=== PATIENT | male | born 1950 | race Caucasian/White ===

== ENCOUNTER → 2016-04-21 | Outpatient (CLI) | payer OTHER ==
--- NOTE | 2016-04-21 09:57 | MR ---
EXAMINATION TYPE: MR lumbar spine wo con DATE OF EXAM: 04/21/2016 9:28 AM COMPARISON: Prior lumbar spine 02 October 2013 HISTORY: Low back pain TECHNIQUE: Multiplanar, multisequence images of the lumbar spine were acquired. L1-L2: Similar findings, no significant central stenosis. L2-L3: Circumferential posterior disc bulge causes anterior mass effect on the thecal sac, mild centr al canal stenosis. No significant foraminal encroachment. Some lateral recess encroachment is present greater on the left. L3-L4: Circumferential disc bulge causes only minimal anterior mass effect on the thecal sac. Facet a rthropathy is again seen. No significant foraminal encroachment. L4-L5: Similar findings, bilateral lateral recess is again noted. Hypertrophy of the ligamentum flavu m and facet arthropathy changes are present, circumferential posterior extension of endplate disc com plex causes mass effect on the anterior thecal sac, circumferential extension encroaches upon the lat eral recesses right greater than left. L5-S1: Normal disc appearance without desiccation. No herniation, protrusion or disc bulging. No ca nal stenosis is present. Foramina are patent bilaterally. Lumbar segments are intact. No paraspinal masses are identified. Conus medullaris has a normal appe arance. There is a spinal curvature as noted on prior exam. Lumbar vertebral bodies show stable heigh t and alignment, bone marrow signal. There is multilevel spondylosis with endplate discogenic marrow signal change. There may be marrow conversion, correlate for possible anemia. Possible hemangioma in T12, L2. Cystic focus associated with the left kidney is incompletely seen. IMPRESSION: Essentially stable exam. Multilevel degenerative disc disease, facet arthropathy, foraminal encroachm ent or spinal curvature, additional findings above.
== END | disposition home or self-care (01) ==
LOC: RADMRIMAIN 08:50
PROVIDERS: ATTEND Physical Medicine & Rehabilitation
DX: M51.36 Other intervertebral disc degeneration, lumbar region (principal); M46.96 Unspecified inflammatory spondylopathy, lumbar region
CPT/HCPCS: 72148

== ENCOUNTER → 2018-06-01 | Outpatient (CLI) | payer OTHER | END | disposition home or self-care (01) | LOC: LABWHC1 08:03 | PROVIDERS: ATTEND Internal Medicine | DX: E78.5 Hyperlipidemia, unspecified (principal) | CPT/HCPCS: 36415; 80061 ==

== ENCOUNTER → 2018-12-01 | Outpatient (CLI) | payer OTHER ==
--- NOTE | 2018-12-01 10:01 | CT ---
EXAMINATION TYPE: CT pelvis w con DATE OF EXAM: 12/01/2018 COMPARISON: None HISTORY: Recent diagnosis of prostate CA CT DLP: 1500.7 mGycm Automated exposure control for dose reduction was used. Contrast-enhanced CT of the pelvis was perfor med. CONTRAST: Performed with IV Contrast, patient injected with 100 mL of Isovue 300. FINDINGS: Streak artifact from left hip prosthesis limits portions of the evaluation given streak artifact. Pro state gland does not appear to be enlarged. Prostate gland calcifications seen. Periprostatic fat gurmeet mekhi appear to be well preserved as visualized. Healed fracture left inferior pubic ramus. No bony roosevelt tructive processes noted. Remote fracture of the right greater trochanter. Severe degenerative change s lumbar spine. IMPRESSION: NO EVIDENCE FOR BONY DESTRUCTIVE PROCESS. REMOTE FRACTURES NOTED. LEFT HIP PROSTHESIS.
--- NOTE | 2018-12-01 15:50 | NM ---
EXAMINATION TYPE: NM bone scan whole body DATE OF EXAM: 12/01/2018 COMPARISON: CT pelvis of the same date HISTORY: Prostate cancer Delayed whole-body scanning was performed following the injection of 26 mCi Tc 99m MDP. Images acqui red 5 hours post injection. FINDINGS: There is focal radiotracer accumulation to just to the left of the distal sternal body. There is also slight uptake of the posterior lateral margin of the 10th right rib. No suspicious uptake in the lum bar spine. Linear uptake along the left femur in its mid diaphysis is noted. Minimal uptake of the me dial sixth rib on the left and right lateral sixth rib. Subtle more questionable uptake is seen of th e posterior margins of ribs 8, 9, and 10. Degenerative uptake is seen of the acromio clavicular joint s, sternoclavicular joints, glenohumeral joints, elbows, knees, ankles, mid feet, and sacroiliac join ts. Photopenia is noted of the left femur likely from arthroplasty. Contour deformity of the distal d iaphysis of the right femur could be sequela of prior fracture. IMPRESSION: 1. Multifocal thoracic uptake within multiple ribs that could relate to rib fractures or skeletal met astasis. CT thorax is recommended for further evaluation. Additionally focal uptake is seen just late ral to the distal sternal body, which can also be evaluated with CT. 2. Linear uptake along the left femoral diaphysis is seen, which should be correlated. Left femoral r adiographs. Bulbous deformity of the distal right femoral diaphysis could relate to prior fracture de formity. Correlation with radiographs could also be considered.
== END | disposition home or self-care (01) ==
LOC: RADCTMAIN 07:40
PROVIDERS: ATTEND Urology
DX: C79.51 Secondary malignant neoplasm of bone (principal); C61 Malignant neoplasm of prostate; M21.851 Other specified acquired deformities of right thigh
CPT/HCPCS: 82565; 84520; 72193; 36415; 78306; A9503; Q9967

== ENCOUNTER → 2018-12-15 | Outpatient (CLI) | payer OTHER ==
--- NOTE | 2018-12-16 07:24 | CT ---
EXAMINATION TYPE: CT chest w con DATE OF EXAM: 12/15/2018 COMPARISON: 06/02/2012 HISTORY: Prostate CA CT DLP: 483.3 mGycm, Automated exposure control for dose reduction was used. CONTRAST: Performed injected with 100 mL of Isovue 300. TECHNIQUE: Axial images were obtained at 5 mm thick sections. Reconstructed images are reviewed on Cell[employer] computer in the coronal plane. FINDINGS: Portion of the thyroid visualized is normal. No suspicious lung nodules or focal infiltrates are present. Some minimal perihilar chronic changes a re evident. No enlarged mediastinal or hilar adenopathy is evident. There are scattered small lymph nodes presen t within the mediastinum. The ascending aorta diameter at the level of the main pulmonary artery is 3 .8 cm. The main pulmonary artery diameter at the bifurcation is 3.1 cm. Dense coronary artery calcif ication is present. Limited CT sections are obtained through the upper abdomen. A partially visualized anterior left mid renal cyst measuring 2.3 cm and 11 Hounsfield units partially within the [id number]. Spondylosis is within the thoracic spine. No suspicious changes for metastatic bone disease is eviden t wall right rib fractures may be present. IMPRESSIONS: 1. Chronic appearing minimal perihilar pneumonitis changes may be chronic. 2. No Suspicious Changes for Metastatic Disease
== END ==
LOC: RADCTMAIN 16:07
PROVIDERS: ATTEND Urology
DX: J18.9 Pneumonia, unspecified organism (principal); C61 Malignant neoplasm of prostate
CPT/HCPCS: 82565; 84520; 71260; 36415; Q9967

== ENCOUNTER → 2019-08-11 | Outpatient (CLI) | payer BC | END | disposition home or self-care (01) | LOC: LABWHC1 12:03 | PROVIDERS: ATTEND Urology | DX: C61 Malignant neoplasm of prostate (principal) | CPT/HCPCS: 36415; 84153; 84403 ==

== ENCOUNTER → 2019-10-26 | Outpatient (CLI) | payer MEDICARE ==
--- NOTE | 2019-10-27 13:00 | ECHOF ---
Referral Reason:I35.0 Nonrheumatic aortic (valve) stenosis MEASUREMENTS -------- HEIGHT: 182.9 cm WEIGHT: 99.8 kg BP: RVIDd: 3.6 cm (< 3.3) IVSd: 1.3 cm (0.6 - 1.1) LVIDd: 5.2 cm (3.9 - 5.3) LVPWd: 1.3 cm (0.6 - 1.1) IVSs: 1.5 cm LVIDs: 3.4 cm LVPWs: 1.6 cm LA Diam: 4.4 cm (2.7 - 3.8) LAESV Index (A-L): 33.58 ml/m Ao Diam: 3.7 cm (2.0 - 3.7) AV Cusp: 1.4 cm (1.5 - 2.6) LA Diam: 4.5 cm (2.7 - 3.8) MV E Luis: 0.61 m/s MV DecT: 332 ms MV A Luis: 1.17 m/s MV E/A Ratio: 0.52 AV maxP.22 mmHg AV meanP.72 mmHg RAP: 5.00 mmHg RVSP: 13.79 mmHg FINDINGS -------- Sinus rhythm. This was a technically adequate study. The left ventricle is moderately dilated. There is moderate concentric left ventricular hypertrophy . Overall left ventricular systolic function is normal with, an EF between 55 - 60 %. The right ventricle is normal in size. The left atrium is moderately dilated. LA is moderately dilated 34-39 ml/m2 The right atrial size is normal. The aortic valve was not well visualized. Mild aortic stenosis with peak/mean pressure gradient of 27.22mmHg / 15.72mmHg , the aortic valve area by continuity equation is {LOGAN}. Peak/mean gradient a cross the Aortic Valve is 27.22mmHg / 15.72mmHg. Mild mitral annular calcification present. Mild mitral regurgitation is present. Mild tricuspid regurgitation present. Right ventricular systolic pressure is normal at < 35 mmHg. The pulmonic valve was not well visualized. The aortic root size is normal. There is no pericardial effusion. CONCLUSIONS -------- 1. The left ventricle is moderately dilated. 2. There is moderate concentric left ventricular hypertrophy. 3. The right ventricle is normal in size. 4. The left atrium is moderately dilated. 5. LA is moderately dilated 34-39 ml/m2 6. The right atrial size is normal. 7. The aortic valve was not well visualized. 8. Peak/mean gradient across the Aortic Valve is 27.22mmHg / 15.72mmHg. 9. Mild mitral annular calcification present. 10. Mild mitral regurgitation is present. 11. Mild tricuspid regurgitation present. 12. Right ventricular systolic pressure is normal at < 35 mmHg. 13. The pulmonic valve was not well visualized. SEMICONDUCTOR PACKAGES LEAK TESTER: Chen Hercules RDCS
== END | disposition home or self-care (01) ==
LOC: RADECHMAIN 15:13
PROVIDERS: ATTEND Internal Medicine
DX: I08.1 Rheumatic disorders of both mitral and tricuspid valves (principal); I48.20 Chronic atrial fibrillation, unspecified; I10 Essential (primary) hypertension
CPT/HCPCS: 93306

== ENCOUNTER → 2020-02-15 | Outpatient (CLI) | payer MEDICARE ==
[2020-02-15 21:09] LABS: Prostate Specific Antigen <0.1 ng/mL (0.0-6.5)
== END | disposition home or self-care (01) ==
LOC: LABWHC1 11:45
PROVIDERS: ATTEND Urology
DX: C61 Malignant neoplasm of prostate (principal)
CPT/HCPCS: 36415; 84153; 84403

== ENCOUNTER 2020-04-10 09:10 | Day surgery (SDC) | payer MEDICARE ==
[2020-04-05 14:01] VITALS: BMI 30.1
[~2020-04-10 09:10] MED LIST: LACTATED RINGERS 1,000 ML IV SCH
[2020-04-10 10:03] VITALS: TEMP 97.3
[2020-04-10] MEDS ORDERED: LIDOCAINE 1% (10MG/ML) FOR IV START INTRADERMA ONE (10:03)
[2020-04-10] MEDS ORDERED: PROPOFOL 10 MG/ML 20 ML VIAL IV ONE (10:36)
--- NOTE | 2020-04-10 11:00 | P.PCN ---
Date of Procedure: 04/10/20 Procedure(s) Performed: BRIEF HISTORY: Patient is a 69-year-old pleasant white male scheduled for an elective colonoscopy as a part of evaluation of intermittent rectal bleeding for the last 1 month duration. His last colonoscopy was in 2008. History of prostate cancer and underwent radiation [id number] PROCEDURE PERFORMED: Colonoscopy with snare polypectomy and argon plasma coagulation. PREOPERATIVE DIAGNOSIS: Rectal bleeding of 1 month duration. IV sedation per Anesthesia. PROCEDURE: After informed consent was obtained, the patient, was brought into the endoscopy unit. IV sedation was administered by Anesthesia under continuous monitoring. Digital rectal examination was normal. Initially the Olympus CF-160 flexible video colonoscope was then inserted in the rectum, gradually advanced into the cecum without any difficulty. Careful examination was performed as the scope was gradually being withdrawn. Ileocecal valve and the appendiceal orifice were visualized and appeared normal. Prep was excellent. Mucosa of the cecum, appeared normal. The ascending colon there was a 5 mm and 7 mm polyp removed by snare polypectomy. In the transverse colon there was a 5 mm polyp and 6 mm polyp removed by snare polypectomy. Rest of the ascending colon, transverse colon, descending colon, sigmoid colon, appeared normal. The distal rectum there were multiple scattered telangiectasia consistent with radiation proctitis and argon plasma coagulation was a was done.. Retroflexion was performed in the rectum and no lesions were seen. The patient tolerated the procedure well. IMPRESSION: 5 mm and 7 mm ascending colon polyp status post polypectomy 5 mm 2 and 8 mm transverse colon polyps status post polypectomy Radiation proctitis with multiple telangiectasias in the distal rectum status post argon plasma coagulation RECOMMENDATIONS: Findings of this examination were discussed with the patient as well as his family. He was advised to follow with the biopsy results. If the biopsy shows an adenoma he can have a repeat colonoscopy in 3 years
[2020-04-10 11:21] VITALS: BP 142/76; PULSE 49; RESP 18
== END 2020-04-10 11:52 | disposition home or self-care (01) ==
LOC: ORWHC2ENDO 09:10
PROVIDERS: ATTEND Internal Medicine Gastroenterology
DX: D12.2 Benign neoplasm of ascending colon (principal); D12.3 Benign neoplasm of transverse colon; K62.7 Radiation proctitis; K62.5 Hemorrhage of anus and rectum; I10 Essential (primary) hypertension; E78.5 Hyperlipidemia, unspecified; I73.9 Peripheral vascular disease, unspecified; F32.9 Major depressive disorder, single episode, unspecified; Z79.01 Long term (current) use of anticoagulants; Z79.899 Other long term (current) drug therapy; Z97.2 Presence of dental prosthetic device (complete) (partial); Z90.49 Acquired absence of other specified parts of digestive tract; Z96.642 Presence of left artificial hip joint; Z85.46 Personal history of malignant neoplasm of prostate; Z92.3 Personal history of irradiation; Y84.2 Radiological procedure and radiotherapy as the cause of abnormal reaction of the patient, or of later complication, without mention of misadventure at the time of the procedure; Y92.538 Other ambulatory health services establishments as the place of occurrence of the external cause
CPT/HCPCS: 45385; 45382; 88305; J2704; 45388

== ENCOUNTER → 2020-08-23 | Outpatient (CLI) | payer MEDICARE ==
[2020-08-23 21:38] LABS: Prostate Specific Antigen <0.1 ng/mL (0.0-6.5)
== END | disposition home or self-care (01) ==
LOC: LABWHC1 10:26
PROVIDERS: ATTEND Urology
DX: C61 Malignant neoplasm of prostate (principal)
CPT/HCPCS: 36415; 84153; 84403

== ENCOUNTER 2020-08-28 08:05 | Day surgery (SDC) | payer MEDICARE ==
[2020-08-23 11:56] VITALS: BMI 27.3
[~2020-08-28 08:05] MED LIST changes: +ALPRAZolam 0.25 MG TAB PO PRN; +ASPIRIN 325 MG TAB PO PRN; -LACTATED RINGERS 1,000 ML IV SCH; +SODIUM CHLORIDE 0.9% 1,000 ML in EMPTY BAG 1 BAG IV ONE
[2020-08-28] MEDS ORDERED: SODIUM CHLORIDE 0.9% 1,000 ML IV ONE (08:21)
[2020-08-28 08:57] LABS: Basophils % (A) 1 %; Eosinophils # (A) 0.3 k/uL (0-0.7); Eosinophils % (A) 7 %; HCT 41.7 % (39.0-53.0); HGB 13.5 gm/dL (13.0-17.5); Lymphocytes # (A) 0.8 k/uL (1.0-4.8); Lymphocytes % (A) 22 %; MCH 31.1 pg (25.0-35.0); MCHC 32.3 g/dL (31.0-37.0); MCV 96.2 fL (80.0-100.0); Mean Platelet Volume 7.2; Monocytes # (A) 0.3 k/uL (0-1.0); Monocytes % (A) 8 %; Neutrophils # (A) 2.3 k/uL (1.3-7.7); Neutrophils % (A) 61 %; Platelet Count 182 k/uL (150-450); RBC 4.33 m/uL (4.30-5.90); RDW 14.4 % (11.5-15.5); WBC 3.8 k/uL (3.8-10.6)
[2020-08-28 09:10] LABS: Calcium 9.6 mg/dL (8.4-10.2); Potassium 4.6 mmol/L (3.5-5.1)
[2020-08-28] MEDS ORDERED: MIDAZOLAM 2 MG/2 ML VIAL IV ONE ×2 (10:21→11:14)
[2020-08-28] MEDS ORDERED: LIDOCAINE 1% INJ 10MG/ML (20 ML MDV) SQ ONE (10:25)
[2020-08-28] MEDS: hydrALAZINE HCL 20 MG/ML 1 ML VIAL IV ONE ×2 (10:41→10:44)
[2020-08-28] MEDS ORDERED: HYDROmorphone 0.5 MG/0.5 ML SYRINGE IVP ONE (11:03)
[2020-08-28] MEDS ORDERED: CLOPIDOGREL 75 MG TAB PO ONE (11:09)
[2020-08-28] MEDS ORDERED: NITROGLYCERIN 1000MCG/10ML SYRINGE INTRAARTER ONE (11:17)
[2020-08-28] MEDS ORDERED: niCARdipine Syringe (1,000 mcg/10 mL) INTRAARTER ONE (11:17)
[2020-08-28] MEDS ORDERED: IOPAMIDOL-250 100ML BTL INTRAARTER ONE (11:20)
--- NOTE | 2020-08-28 11:47 | IR ---
EXAMINATION TYPE: IR precinct police captain femoral popliteal DATE OF EXAM: 08/28/2020 CLINICAL HISTORY: Peripheral vascular disease. TECHNIQUE: Fluoroscopy. COMPARISON: None. FINDINGS: Fluoroscopic guidance was provided during lower extremity angiogram and angioplasty proced ure performed by Dr. Lee. A total of 19 minutes of fluoroscopic time was utilized during the proced ure and 271 spot images was acquired. Please refer to procedure note for further details. IMPRESSION: As Above.
[2020-08-28] MEDS ORDERED: SODIUM CHLORIDE 0.9% 1,000 ML in EMPTY BAG 1 BAG IV SCH (12:00)
[2020-08-28] MEDS: HYDROmorphone 0.5 MG/0.5 ML SYRINGE IVP PRN ×3 (14:45→22:48)
[2020-08-28] MEDS: hydrALAZINE HCL 20 MG/ML 1 ML VIAL IVP PRN ×2 (14:45→17:56)
[2020-08-28] MEDS ORDERED: ESCITALOPRAM 20 MG TAB PO SCH (17:00)
[2020-08-28] MEDS: METOPROLOL TARTRATE 12.5 MG TAB PO SCH (20:11)
[2020-08-28] MEDS: MAGNESIUM OXIDE 400 MG TAB PO SCH (20:11)
[2020-08-28] MEDS: APIXABAN 5 MG TAB PO SCH (20:11)
[2020-08-28] MEDS ORDERED: ATORVASTATIN 80 MG TAB PO SCH (21:00)
[2020-08-28] MEDS ORDERED: CALCIUM CARBONATE 500 MG CHEWABLE PO SCH (21:00)
[2020-08-28] MEDS ORDERED: QUEtiapine 50 MG TAB PO SCH (21:00)
--- NOTE | 2020-08-28 23:26 | AN ---
ANGIOGRAPHY REPORT PERFORMING PHYSICIAN: Luis F Lee MD. PROCEDURE PERFORMED: 1. Successful atherectomy of the right SFA using the HawkOne device with extraction of significant plaque. 2. Successful balloon angioplasty of the right SFA using 5.0 x 50 mm drug-coated balloon with an excellent angiographic results. 3. Intravascular ultrasound (IVUS) of the right SFA. 4. Gradient measurement across the right common iliac artery. 5. Right lower extremity angiogram. 6. Left common femoral artery angiogram. INDICATION: This is a 69-year-old gentleman who was experiencing bilateral lower extremities intermittent claudication, worse on the right side than the left side. He underwent recently an angiogram and that revealed critical disease involving the right SFA with intermediate to severe lesion involving the right common iliac artery and also occluded left SFA. Because his symptoms were worse on the right than the left, he was brought today to undergo an intervention on the right SFA. APPROACH: Left common femoral artery. COMPLICATION: None. LEVEL OF SEDATION: Moderate with sedation length of 53 minutes. PROCEDURE DESCRIPTION: After obtaining an informed consent, the patient was brought to the cardiac stucco laborer. The left common femoral artery was cannulated using micropuncture technique and a micropuncture wire passed easily. Then I placed initially a 6-Malaysian 70 cm sheath. I did predilatation using 6 -Malaysian dilator. The right SFA was selected using 5-Malaysian RIM catheter with 035 Glidewire. After that, I did advance the 70 cm 6-Malaysian sheath over the Glidewire and RIM catheter all the way to the right common femoral artery. Please note that I did exchange my 0.035 stiff Glidewire into an Amplatzer wire because the aortoiliac was extremely tortuous. Anticoagulation was initiated with heparin and the patient ACT was monitored throughout the procedure. I did right lower extremity angiogram which revealed severe [id number] disease with critical right SFA disease and mild disease involving the right popliteal. I wired the SFA on the right side using a [address] wire[address] Intravascular ultrasound was performed and revealed a diameter between 5-6 mm. Subsequently, I did atherectomy using the HawkOne device with extraction of significant plaque. After that, balloon angioplasty was performed using initially 5 mm balloon and subsequently 5 mm drug- coated balloon. The following angiogram showed good angiographic results. I did on the way out a gradient measurement across the right common iliac artery and that came into be significant about 50 mmHg. After that, I did exchange my long sheath into short sheath using 0.035 stiff Glidewire. The procedure was completed without any complication after I did selective left common femoral artery angiogram. POSTPROCEDURE MANAGEMENT: 1. WIRE WORKER of the right iliac and WIRE WORKER of the left SFA. 2. The patient is going to stay overnight. 3. Follow up with the patient. CAROLYN / SAMANTHAN: [id number] /
[2020-08-29 08:02] VITALS: BP 160/83; PULSE 76; RESP 18; TEMP 98.6
[2020-08-29 08:37] LABS: Basophils % (A) 1 %; Eosinophils # (A) 0.2 k/uL (0-0.7); Eosinophils % (A) 5 %; HCT 37.4 % (39.0-53.0); HGB 12.3 gm/dL (13.0-17.5); Lymphocytes # (A) 0.5 k/uL (1.0-4.8); Lymphocytes % (A) 14 %; MCH 32.3 pg (25.0-35.0); MCHC 32.8 g/dL (31.0-37.0); MCV 98.5 fL (80.0-100.0); Mean Platelet Volume 7.5; Monocytes # (A) 0.3 k/uL (0-1.0); Monocytes % (A) 8 %; Neutrophils # (A) 2.8 k/uL (1.3-7.7); Neutrophils % (A) 72 %; Platelet Count 147 k/uL (150-450); RDW 13.8 % (11.5-15.5); WBC 3.8 k/uL (3.8-10.6)
[2020-08-29] MEDS ORDERED: CYANOCOBALAMIN 500 MCG TAB PO SCH (09:00)
[2020-08-29] MEDS ORDERED: ASPIRIN 81 MG PO SCH (09:00)
[2020-08-29] MEDS ORDERED: CLOPIDOGREL 75 MG TAB PO SCH (09:00)
[2020-08-29] MEDS ORDERED: FOLIC ACID 1 MG TAB PO SCH (09:00)
[2020-08-29] MEDS ORDERED: FUROSEMIDE 20 MG TAB PO SCH (09:00)
[2020-08-29] MEDS ORDERED: BICALUTAMIDE 50 MG TAB PO SCH (09:00)
[2020-08-29] MEDS ORDERED: lisinopriL 20 MG TAB PO SCH (09:00)
[2020-08-29] MEDS: APIXABAN 5 MG TAB PO SCH (09:19)
[2020-08-29] MEDS: METOPROLOL TARTRATE 12.5 MG TAB PO SCH (09:19)
[2020-08-29 09:20] LABS: African American GFR (CKD) >90 (>60 ml/min/1.73 sqM); Anion Gap 6 mmol/L; Blood Urea Nitrogen 15 mg/dL (9-20); Calcium 9.1 mg/dL (8.4-10.2); Carbon Dioxide 24 mmol/L (22-30); Chloride 105 mmol/L (98-107); Glucose 104 mg/dL (74-99); Non-African American GFR(CKD) 84 (>60 ml/min/1.73 sqM); Potassium 4.5 mmol/L (3.5-5.1); Sodium 135 mmol/L (137-145)
[2020-08-29] MEDS: MAGNESIUM OXIDE 400 MG TAB PO SCH (09:20)
--- NOTE | 2020-08-29 09:56 | DS ---
DISCHARGE SUMMARY ADMISSION DATE: August 28, 2020. DISCHARGE DATE: August 29, 2020 BRIEF HISTORY: This is a pleasant 69-year-old gentleman who underwent yesterday successful atherectomy and balloon angioplasty of the right SFA from left groin approach. The patient was seen this morning. The left groin is soft and nontender and without any bruises. The patient is going to be discharged home on anti-platelet as well anticoagulation and he will be seen in the office as a followup in a week. MMJANY / SAMANTHAN: [id number] /
--- NOTE | 2020-09-04 14:06 | CDI ---
Outpatient Documentation Clarification Form Date: 09/04/20 CDS/Courtesy Driver Name: Alize Chau Phone: If any questions, call Rabia Sousa Jigger Operator at [phone] Patient Name: Hakeem Valdes Admit Date: 08/28/20 Discharge Date: 08/29/20 ATTENTION: The [facility] Coding staff appreciate your assistance in clarifying documentation. Please respond to the clarification below the line at the bottom and electronically sign. The [facility] coding staff will review the response and follow up if needed. Please Note: Queries are made part of the Legal Health Record. If you have any questions, please contact the Jigger Operator. Dear Dr. Lee, Please provide clarification as to the cause of the occlusive PAD. PAD/PVD is considered unspecified. Greatest specificity is required for medical necessity support. Is underlying cause of the occlusive PAD one of the following? Arteriosclerotic disease of the arteries Arteritis Necrotic Due to embolism/thrombosis Other - please specify below Thank you for your kind consideration MTDD
== END 2020-08-29 11:21 | disposition home or self-care (01) ==
LOC: CATHCVL 08:05 → 3SCARD 17:01 → CATHCVL 08-29 11:21
PROVIDERS: ATTEND Internal Medicine Interventional Cardiology
DX: I70.201 Unspecified atherosclerosis of native arteries of extremities, right leg (principal); I10 Essential (primary) hypertension; E78.5 Hyperlipidemia, unspecified; I38 Endocarditis, valve unspecified; F10.10 Alcohol abuse, uncomplicated; Z87.891 Personal history of nicotine dependence; Z79.82 Long term (current) use of aspirin; Z79.899 Other long term (current) drug therapy
CPT/HCPCS: 37225; 37252; 80048 ×2; 85025 ×2; 87635; C1769 ×7; C1894 ×2; C1714; C1753; C2623; C1725; J2250; J0360; J2001; J1644; J1170; Q9966

== ENCOUNTER 2020-10-02 11:49 | Day surgery (SDC) | payer MEDICARE ==
[2020-10-01 08:36] VITALS: BMI 27.1
[2020-10-02 12:31] LABS: Basophils % (A) 1 %; Eosinophils # (A) 0.3 k/uL (0-0.7); Eosinophils % (A) 6 %; Lymphocytes # (A) 0.8 k/uL (1.0-4.8); Lymphocytes % (A) 15 %; MCH 32.1 pg (25.0-35.0); MCHC 33.2 g/dL (31.0-37.0); MCV 96.5 fL (80.0-100.0); Mean Platelet Volume 7.5; Monocytes # (A) 0.4 k/uL (0-1.0); Monocytes % (A) 8 %; Neutrophils # (A) 3.3 k/uL (1.3-7.7); Neutrophils % (A) 68 %; Platelet Count 177 k/uL (150-450); RBC 4.05 m/uL (4.30-5.90); WBC 4.9 k/uL (3.8-10.6)
[2020-10-02] MEDS ORDERED: ASPIRIN 81 MG ONE (12:32)
[2020-10-02 12:43] LABS: Calcium 9.5 mg/dL (8.4-10.2); Potassium 4.1 mmol/L (3.5-5.1)
[2020-10-02] MEDS ORDERED: SODIUM CHLORIDE 0.9% 500 ML 500 ML with niCARdipine 6.25 MG, NITROGLYCERIN-D5W PMX 0.05... IV ONE ×8 (12:45→17:00)
[2020-10-02] MEDS ORDERED: MIDAZOLAM 2 MG/2 ML VIAL IV ONE (14:44)
[2020-10-02] MEDS ORDERED: HYDROmorphone 0.5 MG/0.5 ML SYRINGE IVP ONE ×5 (14:44→18:27)
[2020-10-02] MEDS: LIDOCAINE 1% INJ 10MG/ML (20 ML MDV) SQ ONE ×2 (14:48→15:45)
[2020-10-02] MEDS: fentaNYL (PF) 50 MCG/ML 2 ML AMP IV ONE ×2 (14:53→16:08)
[2020-10-02] MEDS ORDERED: ENALAPRILAT 1.25 MG/ML 1 ML VIAL IV ONE (15:28)
[2020-10-02] MEDS: hydrALAZINE HCL 20 MG/ML 1 ML VIAL IV ONE ×2 (15:29→15:39)
[2020-10-02] MEDS: MIDAZOLAM 2 MG/2 ML VIAL IV ONE ×2 (15:55→16:38)
[2020-10-02] MEDS: MORPHINE SULFATE 4MG/4ML SYRG IV ONE ×2 (16:57→17:09)
[2020-10-02] MEDS ORDERED: PROPOFOL 10 MG/ML 20 ML VIAL IV ONE (17:30)
[2020-10-02] MEDS ORDERED: IOPAMIDOL-250 100ML BTL INTRAARTER ONE ×2 (17:49→18:21)
[2020-10-02] MEDS ORDERED: SODIUM CHLORIDE 0.9% 1,000 ML IV ONE (18:22)
[2020-10-02] MEDS ORDERED: CLOPIDOGREL 75 MG TAB PO ONE (18:28)
[2020-10-02] MEDS ORDERED: SODIUM CHLORIDE 0.9% 1,000 ML in EMPTY BAG 1 BAG IV SCH (18:30)
--- NOTE | 2020-10-02 20:35 | AN ---
ANGIOGRAPHY REPORT DATE OF SERVICE: October 02, 2020. PERFORMING PHYSICIAN: Luis F Lee MD. PROCEDURE PERFORMED: 1. Successful stenting of the left SFA using 2 stents of Zilver PTX and both of them were 7.0 x 140 mm. 2. Intravascular ultrasound (IVUS) of the left popliteal and left SFA. 3. Successful balloon angioplasty of the left posterior tibial artery and left tibioperoneal trunk. 4. Left lower extremity angiogram. 5. Ultrasound-guided access of the left posterior tibial artery and right common femoral artery. 6. Right common femoral artery angiogram. INDICATION: This is a 69-year-old gentleman who was diagnosed recently with intermittent claudication and underwent an angiogram which revealed severe PAD with occluded bilateral SFA. He underwent angioplasty of the right SFA and was brought today to undergo an intervention on the left SFA. APPROACH: Right common femoral artery and left posterior tibial artery. COMPLICATION: None. LEVEL OF SEDATION: Moderate with sedation length of 205 minutes and this is a long and complex case. PROCEDURE DESCRIPTION: After obtaining an informed consent, the patient was brought to the cardiac geochemical laboratory technician. The right common femoral artery was cannulated using micropuncture technique under ultrasound guidance, the micropuncture wire passed easily. Then I placed a 6-Stateless 70 cm Raabe sheath in the right common femoral artery. Anticoagulation at that point was achieved using heparin and the patient was given 8000 units of heparin at the beginning of the procedure with continuous ACT monitoring throughout the procedure. I did select the left profunda using 0.035 stiff Glidewire with the backup support of 5- Stateless RIM catheter. After that I did advance the rim over the wire to the left profunda. Then I did advance the sheath over the wire and the catheter to the left common femoral artery. Left lower extremity angiogram was achieved. I attempted crossing the TABLET MACHINE OPERATOR in antegrade approach and that was unsuccessful. At that point, I decided to access the left posterior tibial artery. The left posterior tibial artery was accessed using micropuncture technique under ultrasound guidance, the micropuncture wire passed easily. Then I placed a slender 5/6- Stateless sheath at the left posterior tibial artery. At that point, continuous infusion of cocktail includes verapamil and the heparin as well as nitroglycerin was initiated. I was able to cross TABLET MACHINE OPERATOR in a retrograde technique from the left posterior tibial sheath. I was able to advance the wire all the way to the left common femoral artery. Crossing the CTA was extremely challenging. I did snare the wire from above. Then I finished everything from above. Initially I did intravascular ultrasound which I showed that I was in the false lumen all the way. Because of that, I decided to do balloon angioplasty and stent and skip atherectomy. I did balloon angioplasty using 5 mm Chocolate balloon and subsequently deployed 2 stents in the left SFA. Both were 7 x 140 mm Zilver PTX. Both were dilated using 6 mm balloon. Please note that attempting advancing the catheter through the left posterior tibial artery and left tibioperoneal trunk was unsuccessful and I had to do balloon angioplasty to open them up. After that, the procedure was completed without any complication. I did exchange my long sheath into short sheath using 0.035 stiff Glidewire and did selective right common femoral artery angiogram by the end. POSTPROCEDURE MANAGEMENT: 1. Dual anti-platelet therapy. 2. Risk factor modifications. 3. Follow up with the patient. MMODL / IJN: [id number] /
[2020-10-02] MEDS ORDERED: ATORVASTATIN 80 MG TAB PO SCH (21:00)
[2020-10-02] MEDS ORDERED: CALCIUM CARBONATE 500 MG CHEWABLE PO SCH (21:00)
[2020-10-02] MEDS ORDERED: QUEtiapine 50 MG TAB PO SCH (21:00)
[2020-10-02] MEDS ORDERED: ACETAMINOPHEN TAB 325 MG TAB PO PRN (21:59)
[2020-10-02] MEDS: METOPROLOL TARTRATE 12.5 MG TAB PO SCH (22:22)
[2020-10-02] MEDS: MAGNESIUM OXIDE 400 MG TAB PO SCH (22:22)
[2020-10-02 23:02] VITALS: RESP 18
[2020-10-03] MEDS ORDERED: ATROPINE SULFATE 0.1 MG/ML 10ML SYRINGE ONE (00:27)
[2020-10-03 08:02] VITALS: PULSE 64; TEMP 98.2
[2020-10-03] MEDS: MAGNESIUM OXIDE 400 MG TAB PO SCH (08:03)
--- NOTE | 2020-10-03 08:22 | IR ---
Fluoroscopy HISTORY: Peripheral vascular occlusive disease, left leg pain 78.3 minutes fluoroscopy time supplied to the referring clinician. 391 intraoperative C-arm images d ocument the procedure. See dictated report from cardiology.
[2020-10-03 08:28] VITALS: BP 127/61
[2020-10-03] MEDS: METOPROLOL TARTRATE 12.5 MG TAB PO SCH (08:28)
[2020-10-03] MEDS ORDERED: CLOPIDOGREL 75 MG TAB PO SCH (09:00)
[2020-10-03] MEDS ORDERED: lisinopriL 20 MG TAB PO SCH (09:00)
[2020-10-03] MEDS ORDERED: FUROSEMIDE 20 MG TAB PO SCH (09:00)
[2020-10-03] MEDS ORDERED: FOLIC ACID 1 MG TAB PO SCH (09:00)
[2020-10-03] MEDS ORDERED: CYANOCOBALAMIN 500 MCG TAB PO SCH (09:00)
[2020-10-03] MEDS ORDERED: ASPIRIN 81 MG PO SCH (09:00)
[2020-10-03] MEDS ORDERED: BICALUTAMIDE 50 MG TAB PO SCH (09:00)
[2020-10-03 09:26] LABS: African American GFR (CKD) >90 (>60 ml/min/1.73 sqM); Non-African American GFR(CKD) >90 (>60 ml/min/1.73 sqM)
--- NOTE | 2020-10-03 13:21 | DS ---
DISCHARGE SUMMARY DATE OF ADMISSION: October 02, 2020. DATE OF DISCHARGE: October 03, 2020. BRIEF HISTORY: This is a 69-year-old gentleman who underwent, yesterday, successful reopening of totally occluded left SFA from a pedal as well as a groin approach. The procedure was extremely long and very complex, but by the end with an excellent angiographic results and without any complication. By the end I was able to obtain excellent flow in the left leg. The patient was seen today. The right groin is soft and nontender and without any bruises. The left pedal side seems to be good as well. He is going to be discharged on dual anti-platelet therapy, along with high intensity statin and I will follow up with the patient next week in the office. MMJANY / SHERITA: [id number] /
[2020-10-03] MEDS ORDERED: ESCITALOPRAM 10 MG TAB PO SCH (17:00)
--- NOTE | 2020-10-09 09:29 | CDI ---
Outpatient Documentation Clarification Form Date: 09/26/20 CDS/Ancillary Services Manager Name: Alize Chau Phone: If any questions, call Rabia Sousa Prototype Machine Operator at Patient Name: Hakeem Valdes Admit Date: 10/02/20 Discharge Date: 10/03/20 ATTENTION: The [facility] Coding Staff appreciate your assistance in clarifying documentation. Please respond to the clarification below the line at the bottom and electronically sign. The [facility] Coding Staff will review the response and follow-up if needed. Please note: Queries are made part of the legal Health Record. If you have any questions, please contact the Prototype Machine Operator. Dear Dr. Lee, Please provide clarification as to the cause of the occlusive PAD. PAD/PVD is considered unspecified. Greatest specificity is required for medical necessity support. is the underlying cause of the occlusive PAD one of the following? Arteriosclerotic disease of the arteries Arteritis Necrotic Due to embolism/thrombosis Other - please specify below Thank you for your kind consideration, MTDD
--- NOTE | 2020-10-14 12:27 | CDI ---
Outpatient Documentation Clarification Form Date: 10/14/20 CDS/Saddle Stitch Operator Name: Alize Chau Phone: If any questions, call Rabia Sousa Network Development Coordinator at [phone] Patient Name: Hakeem Valdes Admit Date: 08/28/20 Discharge Date: 08/29/20 ATTENTION: The [facility] Coding staff appreciate your assistance in clarifying documentation. Please respond to the clarification below the line at the bottom and electronically sign. The [facility] coding staff will review the response and follow up if needed. Please Note: Queries are made part of the Legal Health Record. If you have any questions, please contact the Network Development Coordinator. Dear Dr. Lee, Please provide clarification as to the cause of the occlusive PAD. PAD/PVD is considered unspecified. Greatest specificity is required for medical necessity support. Is underlying cause of the occlusive PAD one of the following? Arteriosclerotic disease of the arteries Arteritis Necrotic Due to embolism/thrombosis Other - please specify below Thank you for your kind consideration MTDD
--- NOTE | 2020-10-21 06:09 | CDI ---
Outpatient Documentation Clarification Form Date: 10/21/20 CDS/Director Employee Safety And Health Name: Alize Chau Phone: If any questions, call Rabia Sousa Supervisor Dry Cleaning at Patient Name: Hakeem Valdes Admit Date: 10/02/20 Discharge Date: 10/03/20 ATTENTION: The [facility] Coding Staff appreciate your assistance in clarifying documentation. Please respond to the clarification below the line at the bottom and electronically sign. The [facility] Coding Staff will review the response and follow-up if needed. Please note: Queries are made part of the legal Health Record. If you have any questions, please contact the Supervisor Dry Cleaning. Dear Dr. Lee, Please provide clarification as to the cause of the occlusive PAD. PAD/PVD is considered unspecified. Greatest specificity is required for medical necessity support, due to payer medical necessity requirements. Is the underlying cause of the occlusive PAD one of the following? Arteriosclerotic disease of the arteries Arteritis Necrotic Due to embolism/thrombosis Other - please specify below Thank you for your kind consideration, MTDD
--- NOTE | 2020-10-29 06:04 | CDI ---
Outpatient Documentation Clarification Form Date: 10/29/20 CDS/Sharepoint Architect Name: Alize Chau Phone: If any questions, call Rabia Sousa [employer]ator at Patient Name: Hakeem Valdes Admit Date: 10/02/20 Discharge Date: 10/03/20 ATTENTION: The [facility] Coding Staff appreciate your assistance in clarifying documentation. Please respond to the clarification below the line at the bottom and electronically sign. The [facility] Coding Staff will review the response and follow-up if needed. Please note: Queries are made part of the legal Health Record. If you have any questions, please contact the Stock Parts Fabricator. Dear Dr. Lee, Please provide clarification as to the cause of the occlusive PAD. PAD/PVD is considered unspecified. Greatest specificity is required for medical necessity support,and due to payer medical necessity requirements. Is the underlying cause of the occlusive PAD one of the following? Arteriosclerotic disease of the arteries Arteritis Necrotic Due to embolism/thrombosis Other - please specify below Thank you for your kind consideration , MTDD
== END 2020-10-03 11:42 | disposition home or self-care (01) ==
LOC: CATHCVL 11:49 → 3SCARD 18:30 → CATHCVL 10-03 11:42
PROVIDERS: ATTEND Internal Medicine Interventional Cardiology
DX: I70.202 Unspecified atherosclerosis of native arteries of extremities, left leg (principal); I25.10 Atherosclerotic heart disease of native coronary artery without angina pectoris; I11.9 Hypertensive heart disease without heart failure; E78.5 Hyperlipidemia, unspecified; Z87.891 Personal history of nicotine dependence; I08.0 Rheumatic disorders of both mitral and aortic valves; Z79.01 Long term (current) use of anticoagulants; Z79.02 Long term (current) use of antithrombotics/antiplatelets; Z79.82 Long term (current) use of aspirin; Z79.899 Other long term (current) drug therapy
CPT/HCPCS: 94760; 37226; 37228; 37252; 80048; 82565; 85025; C1894 ×3; C1773; C1769 ×7; C1725 ×4; C1887; C1753; C1874; J2250; J0360; J2001; J3010; J1644 ×2; J2704; J1170; Q9966; J2270

== ENCOUNTER 2020-12-26 02:57 | Inpatient (IN) | payer MEDICARE ==
[2020-12-26] MEDS ORDERED: SODIUM CHLORIDE 0.9% 1,000 ML IV STA (03:09)
--- NOTE | 2020-12-26 03:26 | ED ---
Weakness HPI - General Chief complaint: Fall Stated complaint: Fall, back injury Time Seen by Provider: 12/26/20 03:03 Source: patient, EMS Mode of arrival: EMS Limitations: no limitations - Related Data Home Medications Medication Instructions Recorded Confirmed Aspirin 81 mg PO DAILY 11/23/14 10/02/20 Bicalutamide [Casodex] 50 mg PO DAILY 04/05/20 10/02/20 Calcium Carbonate [Calcium] 600 mg PO HS 04/05/20 10/02/20 Cyanocobalamin (Vitamin B-12) 1,000 mcg PO DAILY 04/05/20 10/02/20 [Vitamin B-12] Escitalopram [Lexapro] 30 mg PO 1700 04/05/20 10/02/20 Folic Acid 1 mg PO DAILY 04/05/20 10/02/20 Furosemide [Lasix] 20 mg PO DAILY 04/05/20 10/02/20 Magnesium Oxide [Magox 400] 400 mg PO BID 04/05/20 10/02/20 Metoprolol Tartrate [Lopressor] 12.5 mg PO BID 04/05/20 10/02/20 QUEtiapine [SEROquel] 50 mg PO HS 04/05/20 10/02/20 Ramipril 10 mg PO QAM 04/05/20 10/02/20 amantadine HCL [Amantadine] 100 mg PO BID 04/05/20 10/02/20 Previous Rx's Medication Instructions Recorded Atorvastatin [Lipitor] 80 mg PO HS #30 tab 11/29/14 Apixaban [Eliquis] 2.5 mg PO BID #0 08/29/20 Clopidogrel Bisulfate [Plavix] 75 mg PO DAILY #90 tab 08/29/20 Allergies Allergy/AdvReac Type Severity Reaction Status Date / Time stainless steel Allergy hip Uncoded 10/02/20 12:09 REPLACEMENT HAD TO BE REMOVED Review of Systems ROS Statement: Those systems with pertinent positive or pertinent negative responses have been documented in the HPI. ROS Other: All systems not noted in ROS Statement are negative. Past Medical History Past Medical History: Cancer, Hyperlipidemia, Hypertension, Vascular Disorder Additional Past Medical History / Comment(s): hx of rectal bleeding, prostate ca with radiation 01/2019-02/2019, hx of traumatic brain injury 2016, using a cane to ambulate History of Any Multi-Drug Resistant Organisms: None Reported Past Surgical History: Bowel Resection, Joint Replacement, Orthopedic Surgery Additional Past Surgical History / Comment(s): 08/28/20 rigt SFA arthrectomy, balloon angioplasty, 11/30/15 PTCA LEFT FEM ARTERY. BOWEL RESECTION COLOSTOMY/LATER REVERSED; RT HIP REPLACED X2; RT LEG ORIF W/ MAY/ NOW REMOVED; RT ARM SX WITH PLATE/NOW REMOVED; LEFT WRIST SX.AORTOGRAM, right sfa stent Past Anesthesia/Blood Transfusion Reactions: No Reported Reaction Past Psychological History: Depression Smoking Status: Current every day smoker Past Alcohol Use History: None Reported Past Drug Use History: None Reported - Past Family History Mother Family Medical History: No Reported History Father Family Medical History: Coronary Artery Disease (CAD) Additional Family Medical History / Comment(s): CAROTID ARTERY 95% BLOCKED General Exam Limitations: no limitations Course Vital Signs 12/26/20 12/26/20 12/26/20 03:01 03:23 05:48 Temperature 98.1 F Pulse Rate 70 83 81 Respiratory 18 30 H 20 Rate Blood Pressure 135/76 153/79 162/80 O2 Sat by Pulse 75 L 91 L 97 Oximetry EKG Findings - EKG Comments: EKG Findings:: EKG shows sinus rhythm 83 WV 268 QRS 96 QTc 507 Medical Decision Making - Lab Data Result diagrams: 12/26/20 03:16 12/26/20 03:16 Lab Results 12/26/20 12/26/20 12/26/20 Range/Units 03:16 03:16 03:16 WBC 4.9 (3.8-10.6) k/uL RBC 3.45 L (4.30-5.90) m/uL Hgb 11.1 L (13.0-17.5) gm/dL Hct 33.9 L (39.0-53.0) % MCV 98.4 (80.0-100.0) fL MCH 32.2 (25.0-35.0) pg MCHC 32.7 (31.0-37.0) g/dL RDW 13.4 (11.5-15.5) % Plt Count 228 (150-450) k/uL MPV 8.1 Neutrophils % 87 % Lymphocytes % 4 % Monocytes % 6 % Eosinophils % 1 % Basophils % 0 % Neutrophils # 4.2 (1.3-7.7) k/uL Lymphocytes # 0.2 L (1.0-4.8) k/uL Monocytes # 0.3 (0-1.0) k/uL Eosinophils # 0.1 (0-0.7) k/uL Basophils # 0.0 (0-0.2) k/uL PT 12.3 H (9.0-12.0) sec INR 1.2 H (<1.2) APTT 26.9 (22.0-30.0) sec Sodium (137-145) mmol/L Potassium (3.5-5.1) mmol/L Chloride (98-107) mmol/L Carbon Dioxide (22-30) mmol/L Anion Gap mmol/L BUN (9-20) mg/dL Creatinine (0.66-1.25) mg/dL Est GFR (CKD-EPI)AfAm (>60 ml/min/1.73 sqM) Est GFR (CKD-EPI)NonAf (>60 ml/min/1.73 sqM) Glucose (74-99) mg/dL POC Glucose (mg/dL) (75-99) mg/dL POC Glu Hanging Flags Decorator ID Plasma Lactic Acid Donnell (0.7-2.0) mmol/L Calcium (8.4-10.2) mg/dL Phosphorus (2.5-4.5) mg/dL Magnesium (1.6-2.3) mg/dL Total Bilirubin (0.2-1.3) mg/dL AST (17-59) U/L ALT (4-49) U/L Alkaline Phosphatase (38-126) U/L Creatine Kinase (55-170) U/L Troponin I (0.000-0.034) ng/mL Total Protein (6.3-8.2) g/dL Albumin (3.5-5.0) g/dL Urine Color Yellow Urine Appearance Clear (Clear) Urine pH 6.0 (5.0-8.0) Ur Specific [place] 1.022 (1.001-1.035) Urine Protein 1+ H (Negative) Urine Glucose (UA) Negative (Negative) Urine Ketones Negative (Negative) Urine Blood Moderate H (Negative) Urine Nitrite Negative (Negative) Urine Bilirubin Negative (Negative) Urine Urobilinogen <2.0 (<2.0) mg/dL Ur Leukocyte Esterase Negative (Negative) Urine RBC 17 H (0-5) /hpf Urine WBC 3 (0-5) /hpf Ur Squamous Epith Cells <1 (0-4) /hpf Hyaline Casts 1 (0-2) /lpf Urine Mucus Rare H (None) /hpf 12/26/20 12/26/20 12/26/20 Range/Units 03:16 03:16 03:16 WBC (3.8-10.6) k/uL RBC (4.30-5.90) m/uL Hgb (13.0-17.5) gm/dL Hct (39.0-53.0) % MCV (80.0-100.0) fL MCH (25.0-35.0) pg MCHC (31.0-37.0) g/dL RDW (11.5-15.5) % Plt Count (150-450) k/uL MPV Neutrophils % % Lymphocytes % % Monocytes % % Eosinophils % % Basophils % % Neutrophils # (1.3-7.7) k/uL Lymphocytes # (1.0-4.8) k/uL Monocytes # (0-1.0) k/uL Eosinophils # (0-0.7) k/uL Basophils # (0-0.2) k/uL PT (9.0-12.0) sec INR (<1.2) APTT (22.0-30.0) sec Sodium 137 (137-145) mmol/L Potassium 4.9 (3.5-5.1) mmol/L Chloride 101 (98-107) mmol/L Carbon Dioxide 26 (22-30) mmol/L Anion Gap 10 mmol/L BUN 32 H (9-20) mg/dL Creatinine 1.00 (0.66-1.25) mg/dL Est GFR (CKD-EPI)AfAm 87 (>60 ml/min/1.73 sqM) Est GFR (CKD-EPI)NonAf 75 (>60 ml/min/1.73 sqM) Glucose 138 H (74-99) mg/dL POC Glucose (mg/dL) (75-99) mg/dL POC Glu Hanging Flags Decorator ID Plasma Lactic Acid Donnell 2.1 H* (0.7-2.0) mmol/L Calcium 9.0 (8.4-10.2) mg/dL Phosphorus 2.9 (2.5-4.5) mg/dL Magnesium 2.6 H (1.6-2.3) mg/dL Total Bilirubin 1.2 (0.2-1.3) mg/dL AST 111 H (17-59) U/L ALT 67 H (4-49) U/L Alkaline Phosphatase 99 (38-126) U/L Creatine Kinase 306 H (55-170) U/L Troponin I 0.049 H* (0.000-0.034) ng/mL Total Protein 7.3 (6.3-8.2) g/dL Albumin 3.5 (3.5-5.0) g/dL Urine Color Urine Appearance (Clear) Urine pH (5.0-8.0) Ur Specific [place] (1.001-1.035) Urine Protein (Negative) Urine Glucose (UA) (Negative) Urine Ketones (Negative) Urine Blood (Negative) Urine Nitrite (Negative) Urine Bilirubin (Negative) Urine Urobilinogen (<2.0) mg/dL Ur Leukocyte Esterase (Negative) Urine RBC (0-5) /hpf Urine WBC (0-5) /hpf Ur Squamous Epith Cells (0-4) /hpf Hyaline Casts (0-2) /lpf Urine Mucus (None) /hpf 12/26/20 Range/Units 03:23 WBC (3.8-10.6) k/uL RBC (4.30-5.90) m/uL Hgb (13.0-17.5) gm/dL Hct (39.0-53.0) % MCV (80.0-100.0) fL MCH (25.0-35.0) pg MCHC (31.0-37.0) g/dL RDW (11.5-15.5) % Plt Count (150-450) k/uL MPV Neutrophils % % Lymphocytes % % Monocytes % % Eosinophils % % Basophils % % Neutrophils # (1.3-7.7) k/uL Lymphocytes # (1.0-4.8) k/uL Monocytes # (0-1.0) k/uL Eosinophils # (0-0.7) k/uL Basophils # (0-0.2) k/uL PT (9.0-12.0) sec INR (<1.2) APTT (22.0-30.0) sec Sodium (137-145) mmol/L Potassium (3.5-5.1) mmol/L Chloride (98-107) mmol/L Carbon Dioxide (22-30) mmol/L Anion Gap mmol/L BUN (9-20) mg/dL Creatinine (0.66-1.25) mg/dL Est GFR (CKD-EPI)AfAm (>60 ml/min/1.73 sqM) Est GFR (CKD-EPI)NonAf (>60 ml/min/1.73 sqM) Glucose (74-99) mg/dL POC Glucose (mg/dL) 129 H (75-99) mg/dL POC Glu Hanging Flags Decorator ID [place] Plasma Lactic Acid Donnell (0.7-2.0) mmol/L Calcium (8.4-10.2) mg/dL Phosphorus (2.5-4.5) mg/dL Magnesium (1.6-2.3) mg/dL Total Bilirubin (0.2-1.3) mg/dL AST (17-59) U/L ALT (4-49) U/L Alkaline Phosphatase (38-126) U/L Creatine Kinase (55-170) U/L Troponin I (0.000-0.034) ng/mL Total Protein (6.3-8.2) g/dL Albumin (3.5-5.0) g/dL Urine Color Urine Appearance (Clear) Urine pH (5.0-8.0) Ur Specific [place] (1.001-1.035) Urine Protein (Negative) Urine Glucose (UA) (Negative) Urine Ketones (Negative) Urine Blood (Negative) Urine Nitrite (Negative) Urine Bilirubin (Negative) Urine Urobilinogen (<2.0) mg/dL Ur Leukocyte Esterase (Negative) Urine RBC (0-5) /hpf Urine WBC (0-5) /hpf Ur Squamous Epith Cells (0-4) /hpf Hyaline Casts (0-2) /lpf Urine Mucus (None) /hpf Disposition Clinical Impression: Fall, Weakness, Altered mental state, Pneumonia, UTI (urinary tract infection), Hypoxia Disposition: ADMITTED IP TO THIS HOSP Condition: Fair Is patient prescribed a controlled substance at d/c from ED?: No Referrals: Robert Lazaro MD [Primary Care Provider] - 1-2 days
[2020-12-26 03:27] LABS: Glucose,Whole Blood 129 mg/dL (75-99)
[2020-12-26 03:45] LABS: Basophils % (A) 0 %; Eosinophils # (A) 0.1 k/uL (0-0.7); Eosinophils % (A) 1 %; HCT 33.9 % (39.0-53.0); HGB 11.1 gm/dL (13.0-17.5); Lymphocytes # (A) 0.2 k/uL (1.0-4.8); Lymphocytes % (A) 4 %; MCH 32.2 pg (25.0-35.0); MCHC 32.7 g/dL (31.0-37.0); MCV 98.4 fL (80.0-100.0); Mean Platelet Volume 8.1; Monocytes # (A) 0.3 k/uL (0-1.0); Monocytes % (A) 6 %; Neutrophils # (A) 4.2 k/uL (1.3-7.7); Neutrophils % (A) 87 %; Platelet Count 228 k/uL (150-450); RBC 3.45 m/uL (4.30-5.90); RDW 13.4 % (11.5-15.5); WBC 4.9 k/uL (3.8-10.6)
[2020-12-26 04:13] LABS: INR 1.2 (<1.2); Partial Thromboplastin Time 26.9 sec (22.0-30.0); Prothrombin Time 12.3 sec (9.0-12.0)
--- NOTE | 2020-12-26 04:25 | CT ---
EXAMINATION TYPE: CT brain kay kamara DATE OF EXAM: 12/26/2020 COMPARISON: None HISTORY: fall CT DLP: 1549.9 mGycm Automated exposure control for dose reduction was used. Images of the brain and cervical spine without contrast. There is cerebral cortical atrophy. There is some patchy hypodensity in the periventricular white mat ter. There is no mass effect nor midline shift. There is no sign of intracranial hemorrhage. The calv arium is intact. Skull base is intact. There is normal aeration of the mastoid sinuses. Cervical vertebra have normal alignment. Disc spaces are fairly normal for age. Posterior elements ar e intact. There is no compression fracture. There is anterior spurring in the lower cervical spine. Prevertebral soft tissues are intact. There are extensive upper lobe bilateral pulmonary infiltrates. There is distended gas-filled upper thoracic esophagus. IMPRESSION: No acute abnormality of the cervical spine. Cerebral atrophy and chronic small vessel ischemia. No acute intracranial abnormality. Bilateral upper lobe pneumonia.
--- NOTE | 2020-12-26 04:29 | CT ---
EXAMINATION TYPE: CT lumbar spine wo con DATE OF EXAM: 12/26/2020 COMPARISON: None HISTORY: fall low back pain CT DLP: 1503.6 mGycm Automated exposure control for dose reduction was used. Images obtained from the level of T12-S3 vertebra without contrast. There is transitional S1 vertebra . There is posterior calcified disc herniation at L5-S1. There is no lumbar compression fracture. Josemanuel tebra have normal alignment. There is anterior spurring throughout the lumbar spine. Abdominal aorta is atheromatous. The facet joints are intact. Sacroiliac joints appear intact. There is no lumbar par aspinal mass. IMPRESSION: Spondylotic changes. No acute fracture seen. Disc herniation at L5-S1 with mild relative spinal steno sis. Disc herniation appears increased compared to MRI scan 04/21/2016.
--- NOTE | 2020-12-26 04:32 | XR ---
EXAMINATION TYPE: XR chest 1V DATE OF EXAM: 12/26/2020 COMPARISON: 10/18/2014 HISTORY: Fall. Pain. TECHNIQUE: FINDINGS: There is coarse interstitial and to a lesser extent airspace infiltrates in both lungs. The re is some consolidation right upper lobe with 3 cm density. There is no heart failure. There is no p leural effusion. IMPRESSION: Pulmonary interstitial fibrosis. Pulmonary patchy infiltrates are new compared to old exam. There is 3 cm masslike consolidation right upper lobe that is new compared to old exam. Follow-up is recommend ed to show clearing.
[2020-12-26] MEDS ORDERED: AZITHROMYCIN 500 MG in SODIUM CHLORIDE 0.9% 250 ML IVPB STA (05:41)
[2020-12-26 05:52] LABS: Albumin 3.5 g/dL (3.5-5.0); Magnesium 2.6 mg/dL (1.6-2.3); Phosphorus 2.9 mg/dL (2.5-4.5); Potassium 4.9 mmol/L (3.5-5.1); Total Bilirubin 1.2 mg/dL (0.2-1.3); Total Protein 7.3 g/dL (6.3-8.2)
[2020-12-26] MEDS ORDERED: ONDANSETRON 4 MG/2 ML VIAL IVP PRN (06:21)
[2020-12-26] MEDS ORDERED: NALOXONE 0.4 MG/ML 1 ML VIAL IV PRN (06:21)
[2020-12-26 06:22] LABS: Appearance,Urine Clear (Clear); Bilirubin,Urine Negative (Negative); Blood,Urine Moderate (Negative); Color,Urine Yellow; Glucose,Urine (UA) Negative (Negative); Hyaline Casts,Urine 1 /lpf (0-2); Ketones,Urine Negative (Negative); Leukocyte Esterase,Urine Negative (Negative); Mucus,Urine Rare /hpf; Nitrite,Urine Negative (Negative); Protein,Urine 1+ (Negative); RBC,Urine 17 /hpf (0-5); Specific Gravity,Urine 1.022 (1.001-1.035); Squamous Epithelial Cell,Urine <1 /hpf (0-4); Urobilinogen,Urine <2.0 mg/dL (<2.0); WBC,Urine 3 /hpf (0-5)
[2020-12-26] MEDS: SODIUM CHLORIDE 0.9% 1,000 ML IV SCH ×2 (06:33→16:31)
[2020-12-26] MEDS ORDERED: PANTOPRAZOLE 40 MG/10 ML VIAL IV SCH (09:00)
--- NOTE | 2020-12-26 09:52 | P.HPIM ---
<Agus Cloud - Last Filed: 12/26/20 15:57> History of Present Illness H&P Date: 12/26/20 History of Presenting Illness: Patient is a 70-year-old male with a past medical history of hypertension, hyperlipidemia, peripheral vascular disease, TBI, and prostate cancer 2018. He was brought to the emergency department for reports of lethargy, weakness, and shortness of breath. He was found to have acute respiratory failure with hypoxia requiring oxygen supplementation. In the ED, a chest x-ray revealed pulmonary interstitial fibrosis with a 3 cm masslike consolidation in the right upper lobe, CT head and cervical spine negative for acute process. Chest x-ray revealing bilateral upper lobe pneumonia. CT chest positive for bilateral upper lobe pneumonia. Labs initially revealing lactic acidosis with lactate of 2.1 and repeat of 1.0. CBC revealing mild normocytic normochromic anemia with a hemoglobin of 11.1. Liver profile revealing slightly elevated AST at 111 and ALT of 67. Patient was started on azithromycin and Rocephin and Covid PCR pending. Patient was vaccinated for pneumococcal vaccination in 2019 as well as Covid 19 with [employer] vaccine 06/2020. Patient was admitted under our services with consultation to pulmonology. Patient was seen and fully evaluated at the bedside. Patient appeared to be in moderate distress on 6 L O2 via nasal cannula with SpO2 of 90%. Patient positive accessory muscle use. Patient reports feeling very tired and weak. He confirmed receiving Covid 19 vaccination in June of this year. He reports shortness of breath, coarse nonproductive cough and weakness began approximately 5 days ago and rapidly worsened. He denies having fever, chills, diaphoresis, headache, lightheadedness, dizziness, chest pain, palpitations, abdominal pain, nausea, vomiting, changes in urinary or bowel function, or experiencing any swelling/numbness/weakness in his extremities. Covid 19 PCR resulted POSITIVE. Review of systems: Pertinent positives and negatives as discussed in HPI, a complete review of systems was performed and all other systems are negative. Physical exam: Vital signs reviewed and stable with the exception of increased oxygenation needs, patient on 6 L with SpO2 of 90%. General: Patient appears stated age, acutely ill-appearing and in mild distress. Derm: Skin warm and dry, normal coloration for ethnicity. Head: Atraumatic, normocephalic and symmetric. Eyes: EOMs intact, no lid lag, and anicteric sclera Mouth: no lip lesions, mucus membranes dry Cardiovascular: regular rate and rhythm with normal S1S2, no murmur, positive posterior tibial pulses bilaterally, and cap refill < 2 seconds. Lungs: Increased respiratory effort with use of accessory muscles, lungs moderately diminished with crackles at bilateral bases. Abdominal: soft, nontender to palpation, no guarding, no appreciable organomegaly Ext: ROM intact. No gross muscle atrophy, no edema, no contractures. Bilateral lower extremity venous discoloration. Neuro: Speech clear, face symmetrical and CN II-XII grossly intact with no noted focal neuro deficits Psych: Alert and oriented to person, place, time, and situation. Appropriate and pleasant affect. Assessment and Plan of Care: Acute respiratory failure with hypoxia secondary to Covid 19 pneumonia -Chest x-ray revealing bilateral upper lobe pneumonia. CT chest positive for bilateral upper lobe pneumonia. -Covid 19 PCR resulted POSITIVE. -Continued Oxygenation to be administered and titrated as needed to maintain SPO2 equal to or greater than 90% -Telemetry monitoring. -Pulse-oximetry -Decadron, day 1 of steroids -Zinc, vitamin C, and vitamin D -Pulmonary following, appreciate further recommendations. Hypertension Monitor vital signs and continue daily medication regimen. Hyperlipidemia Continue daily medication regimen. Paroxysmal atrial fibrillation Continue anticoagulation with Eliquis Chronic medical conditions include: Peripheral vascular disease TBI History of prostate cancer The patient is admitted with an anticipated greater than 2 midnight stay for evaluation of acute respiratory failure with hypoxia secondary to Covid 19 pneumonia Surrogate decision-maker: CODE STATUS: Full code DVT prophylaxis: Eliquis Discussed with: Patient and RN Anticipated discharge date: Clinical course to determine Anticipated discharge place: Home A total of 45 minutes was spent on the care of this complex patient more than 50 % of the time was spent in counseling and care coordination. Past Medical History Past Medical History: Cancer, Hyperlipidemia, Hypertension, Vascular Disorder Additional Past Medical History / Comment(s): hx of rectal bleeding, prostate ca with radiation 01/2019-02/2019, hx of traumatic brain injury 2017, using a cane to ambulate History of Any Multi-Drug Resistant Organisms: None Reported Past Surgical History: Bowel Resection, Joint Replacement, Orthopedic Surgery Additional Past Surgical History / Comment(s): 08/28/20 rigt SFA arthrectomy, balloon angioplasty, 9/3/16 PTCA LEFT FEM ARTERY. BOWEL RESECTION COLOSTOMY/LATER REVERSED; RT HIP REPLACED X2; RT LEG ORIF W/ MAY/ NOW REMOVED; RT ARM SX WITH PLATE/NOW REMOVED; LEFT WRIST SX.AORTOGRAM, right sfa stent Past Anesthesia/Blood Transfusion Reactions: No Reported Reaction Past Psychological History: Depression Smoking Status: Current every day smoker Past Alcohol Use History: None Reported Past Drug Use History: None Reported - Past Family History Mother Family Medical History: No Reported History Father Family Medical History: Coronary Artery Disease (CAD) Additional Family Medical History / Comment(s): CAROTID ARTERY 95% BLOCKED Medications and Allergies Home Medications Medication Instructions Recorded Confirmed Type Aspirin 81 mg PO DAILY@0811/23/14 12/26/20 History Bicalutamide [Casodex] 50 mg PO DAILY@0804/05/20 12/26/20 History Escitalopram [Lexapro] 30 mg PO DAILY@1700 04/05/20 12/26/20 History Folic Acid 1 mg PO DAILY@79904/05/20 12/26/20 History Furosemide [Lasix] 20 mg PO DAILY@0804/05/20 12/26/20 History Magnesium Oxide [Magox 400] 400 mg PO BID@08,199904/05/20 12/26/20 History Metoprolol Tartrate [Lopressor] 12.5 mg PO BID@08,199904/05/20 12/26/20 History QUEtiapine [SEROquel] 50 mg PO HS@199904/05/20 12/26/20 History Ramipril 10 mg PO DAILY@0804/05/20 12/26/20 History amantadine HCL [Amantadine] 100 mg PO BID@08,199904/05/20 12/26/20 History Apixaban [Eliquis] 2.5 mg PO BID@08,199912/26/20 12/26/20 History Atorvastatin [Lipitor] 80 mg PO HS@199912/26/20 12/26/20 History Calcium Carbonate/Vitamin D3 1 tab PO HS@199912/26/20 12/26/20 History [Calcium 600 mg-D3 20 mcg (800 unit)] Clopidogrel Bisulfate [Plavix] 75 mg PO DAILY@79912/26/20 12/26/20 History Cyanocobalamin (Vitamin B-12) 5,000 mcg PO DAILY@0800 12/26/20 12/26/20 History [Vitamin B12] Allergies Allergy/AdvReac Type Severity Reaction Status Date / Time stainless steel Allergy hip Uncoded 12/26/20 07:00 REPLACEMENT HAD TO BE REMOVED Physical Exam Vitals: Vital Signs Temp Pulse Resp BP Pulse Ox 12/26/20 08:27 83 16 142/86 92 L 12/26/20 05:48 81 20 162/80 97 12/26/20 03:23 83 30 H 153/79 91 L 12/26/20 03:01 98.1 F 70 18 135/76 75 L Intake and Output 12/25/20 12/26/20 12/26/20 22:59 06:59 14:59 Other: Weight 83.915 kg Results CBC & Chem 7: 12/26/20 03:16 12/26/20 03:16 Labs: Abnormal Lab Results - Last 24 Hours (Table) 12/26/20 12/26/20 12/26/20 Range/Units 03:16 03:16 03:16 RBC 3.45 L (4.30-5.90) m/uL Hgb 11.1 L (13.0-17.5) gm/dL Hct 33.9 L (39.0-53.0) % Lymphocytes # 0.2 L (1.0-4.8) k/uL PT 12.3 H (9.0-12.0) sec INR 1.2 H (<1.2) BUN (9-20) mg/dL Glucose (74-99) mg/dL POC Glucose (mg/dL) (75-99) mg/dL Plasma Lactic Acid Donnell (0.7-2.0) mmol/L Magnesium (1.6-2.3) mg/dL AST (17-59) U/L ALT (4-49) U/L Creatine Kinase (55-170) U/L Troponin I (0.000-0.034) ng/mL Urine Protein 1+ H (Negative) Urine Blood Moderate H (Negative) Urine RBC 17 H (0-5) /hpf Urine Mucus Rare H (None) /hpf Coronavirus (PCR) (Not Detectd) 12/26/20 12/26/20 12/26/20 Range/Units 03:16 03:16 03:16 RBC (4.30-5.90) m/uL Hgb (13.0-17.5) gm/dL Hct (39.0-53.0) % Lymphocytes # (1.0-4.8) k/uL PT (9.0-12.0) sec INR (<1.2) BUN 32 H (9-20) mg/dL Glucose 138 H (74-99) mg/dL POC Glucose (mg/dL) (75-99) mg/dL Plasma Lactic Acid Donnell 2.1 H* (0.7-2.0) mmol/L Magnesium 2.6 H (1.6-2.3) mg/dL AST 111 H (17-59) U/L ALT 67 H (4-49) U/L Creatine Kinase 306 H (55-170) U/L Troponin I 0.049 H* (0.000-0.034) ng/mL Urine Protein (Negative) Urine Blood (Negative) Urine RBC (0-5) /hpf Urine Mucus (None) /hpf Coronavirus (PCR) (Not Detectd) 12/26/20 12/26/20 Range/Units 03:23 06:41 RBC (4.30-5.90) m/uL Hgb (13.0-17.5) gm/dL Hct (39.0-53.0) % Lymphocytes # (1.0-4.8) k/uL PT (9.0-12.0) sec INR (<1.2) BUN (9-20) mg/dL Glucose (74-99) mg/dL POC Glucose (mg/dL) 129 H (75-99) mg/dL Plasma Lactic Acid Donnell (0.7-2.0) mmol/L Magnesium (1.6-2.3) mg/dL AST (17-59) U/L ALT (4-49) U/L Creatine Kinase (55-170) U/L Troponin I (0.000-0.034) ng/mL Urine Protein (Negative) Urine Blood (Negative) Urine RBC (0-5) /hpf Urine Mucus (None) /hpf Coronavirus (PCR) Detected A (Not Detectd) <Jarrod Martell - Last Filed: 12/26/20 18:45> Physical Exam Osteopathic Statement: *. No significant issues noted on an osteopathic structural exam other than those noted in the History and Physical/Consult. Vitals: Vital Signs Temp Pulse Pulse Resp BP BP Pulse Ox 12/26/20 17:45 98.5 F 99 158/86 94 L 12/26/20 17:33 98.1 F 91 20 186/99 94 L 12/26/20 16:00 91 20 186/99 94 L 12/26/20 11:56 94 24 172/90 95 12/26/20 08:27 83 16 142/86 92 L 12/26/20 05:48 81 20 162/80 97 12/26/20 03:23 83 30 H 153/79 91 L 12/26/20 03:01 98.1 F 70 18 135/76 75 L Intake and Output 12/26/20 12/26/20 12/26/20 06:59 14:59 22:59 Other: Weight 83.915 kg 83.915 kg Results CBC & Chem 7: 12/26/20 03:16 12/26/20 03:16 Labs: Abnormal Lab Results - Last 24 Hours (Table) 12/26/20 12/26/20 12/26/20 Range/Units 03:16 03:16 03:16 RBC 3.45 L (4.30-5.90) m/uL Hgb 11.1 L (13.0-17.5) gm/dL Hct 33.9 L (39.0-53.0) % Lymphocytes # 0.2 L (1.0-4.8) k/uL PT 12.3 H (9.0-12.0) sec INR 1.2 H (<1.2) D-Dimer (<0.60) mg/L FEU BUN (9-20) mg/dL Glucose (74-99) mg/dL POC Glucose (mg/dL) (75-99) mg/dL Plasma Lactic Acid Donnell (0.7-2.0) mmol/L Magnesium (1.6-2.3) mg/dL AST (17-59) U/L ALT (4-49) U/L Lactate Dehydrogenase (313-618) U/L Creatine Kinase (55-170) U/L Troponin I (0.000-0.034) ng/mL C-Reactive Protein (<1.0) mg/dL Urine Protein 1+ H (Negative) Urine Blood Moderate H (Negative) Urine RBC 17 H (0-5) /hpf Urine Mucus Rare H (None) /hpf Coronavirus (PCR) (Not Detectd) 12/26/20 12/26/20 12/26/20 Range/Units 03:16 03:16 03:16 RBC (4.30-5.90) m/uL Hgb (13.0-17.5) gm/dL Hct (39.0-53.0) % Lymphocytes # (1.0-4.8) k/uL PT (9.0-12.0) sec INR (<1.2) D-Dimer (<0.60) mg/L FEU BUN 32 H (9-20) mg/dL Glucose 138 H (74-99) mg/dL POC Glucose (mg/dL) (75-99) mg/dL Plasma Lactic Acid Donnell 2.1 H* (0.7-2.0) mmol/L Magnesium 2.6 H (1.6-2.3) mg/dL AST 111 H (17-59) U/L ALT 67 H (4-49) U/L Lactate Dehydrogenase (313-618) U/L Creatine Kinase 306 H (55-170) U/L Troponin I 0.049 H* (0.000-0.034) ng/mL C-Reactive Protein (<1.0) mg/dL Urine Protein (Negative) Urine Blood (Negative) Urine RBC (0-5) /hpf Urine Mucus (None) /hpf Coronavirus (PCR) (Not Detectd) 12/26/20 12/26/20 12/26/20 Range/Units 03:23 06:41 11:49 RBC (4.30-5.90) m/uL Hgb (13.0-17.5) gm/dL Hct (39.0-53.0) % Lymphocytes # (1.0-4.8) k/uL PT (9.0-12.0) sec INR (<1.2) D-Dimer 1.54 H (<0.60) mg/L FEU BUN (9-20) mg/dL Glucose (74-99) mg/dL POC Glucose (mg/dL) 129 H (75-99) mg/dL Plasma Lactic Acid Donnell (0.7-2.0) mmol/L Magnesium (1.6-2.3) mg/dL AST (17-59) U/L ALT (4-49) U/L Lactate Dehydrogenase (313-618) U/L Creatine Kinase (55-170) U/L Troponin I (0.000-0.034) ng/mL C-Reactive Protein (<1.0) mg/dL Urine Protein (Negative) Urine Blood (Negative) Urine RBC (0-5) /hpf Urine Mucus (None) /hpf Coronavirus (PCR) Detected A (Not Detectd) 12/26/20 Range/Units 11:49 RBC (4.30-5.90) m/uL Hgb (13.0-17.5) gm/dL Hct (39.0-53.0) % Lymphocytes # (1.0-4.8) k/uL PT (9.0-12.0) sec INR (<1.2) D-Dimer (<0.60) mg/L FEU BUN (9-20) mg/dL Glucose (74-99) mg/dL POC Glucose (mg/dL) (75-99) mg/dL Plasma Lactic Acid Donnell (0.7-2.0) mmol/L Magnesium (1.6-2.3) mg/dL AST (17-59) U/L ALT (4-49) U/L Lactate Dehydrogenase 1153 H (313-618) U/L Creatine Kinase (55-170) U/L Troponin I (0.000-0.034) ng/mL C-Reactive Protein 24.8 H (<1.0) mg/dL Urine Protein (Negative) Urine Blood (Negative) Urine RBC (0-5) /hpf Urine Mucus (None) /hpf Coronavirus (PCR) (Not Detectd) Assessment and Plan Assessment: Patient seen and evaluated by me independently. Patient was also seen by RADHA, the original author of this note. I am in agreement with the subjective, physical exam, and assessment and plan as documented with the addition/changes of my exam and assessment below. Gen: awake, alert HEENT: normocephalic, atraumatic, good hearing acuity, moist mucous membranes Resp: Impaired air exchange, dyspnea, crackles CVS: good distal perfusion x 4, tachycardic, regular rhythm GI: soft, NTTP, ND : no SPT, no CVAT, haney catheter not present MSK: no pitting edema, no clubbing Neuro: non-focal, moving all extremities Psych: cooperative, euthymic mood Plan: Pulmonary consult Antibiotics Decadron Vitamin C/C, zinc Outside window for remdesivir Consideration of IL-6 inhibitor if acute worsening Oxygen when necessary
--- NOTE | 2020-12-26 11:08 | P.CNPUL ---
History of Present Illness Consult date: 12/26/20 Reason for consult: dyspnea History of present illness: A 70-year-old male patient, a poor historian, who was originally brought into the hospital upon the request of his as the patient was found to be quite lethargic, weak, had a fall at home and he was also found to be having increased shortness of breath. He has been vaccinated for COVID-19 and he has completed his vaccination approximately 5 months ago. The chest x-ray showed diffuse but the pulmonary infiltrates and the patient checked positive for COVID-19 by PCR. As such, the patient is currently on oxygen at 6 L per minute and the pulse ox is currently 89-90%. His blood work shows a white cell count of 4.9 with a hemoglobin of 11. He has lymphopenia with a lymphocyte count of 0.2. Coagulation profile is within normal limits. Lactic acid level is at 2.1. BUN is at 32 with a creatinine of 1 and sodium of 137. He does have mild transaminitis consistent with COVID-19 infection with a AST of 111 and ALT of 67. Troponin was at 0.04. Total protein was 7.3 and a albumin of 3.5. UA showed 3 WBCs [place] +1 protein. No nausea. No vomiting. He had diminished appetite. His been feeling weak all over. He was apparently getting confused at home according to the . Review of Systems Constitutional: Reports fatigue, Reports lethargy, Reports poor appetite, Reports weakness Eyes: denies as per HPI, denies blurred vision, denies bulging eye, denies decreased vision, denies diplopia, denies discharge, denies dry eye, denies irritation, denies itching, denies pain, denies photophobia, denies loss of peripheral vision, denies loss of vision, denies tunnel vision/blind spots Ears: deny: decreased hearing, ear discharge, earache, tinnitus Breasts: absent: as per HPI, gynecomastia Cardiovascular: Reports decreased exercise tolerance, Reports dyspnea on exertion, Reports shortness of breath (vitals) Respiratory: Reports cough, Reports dyspnea Gastrointestinal: Reports loss of appetite Genitourinary: Reports as per HPI Musculoskeletal: Reports as per HPI, Reports frequent falls, Reports muscle weakness Musculoskeletal: absent: ankle pain, ankle stiffness, ankle swelling, as per HPI, elbow pain, elbow stiffness, elbow swelling, foot pain, foot stiffness, foot swelling, hand pain, hand stiffness, hand swelling, hip pain, hip stiffness, hip swelling, knee pain, knee stiffness, knee swelling, shoulder pain, shoulder stiffness, shoulder swelling, wrist pain, wrist stiffness, wrist swelling Integumentary: Reports as per HPI Neurological: Reports as per HPI, Reports weakness Psychiatric: Reports as per HPI Endocrine: Reports as per HPI Past Medical History Past Medical History: Cancer, Hyperlipidemia, Hypertension, Vascular Disorder Additional Past Medical History / Comment(s): hx of rectal bleeding, prostate ca with radiation 01/2019-02/2019, hx of traumatic brain injury 2016, using a cane to ambulate History of Any Multi-Drug Resistant Organisms: None Reported Past Surgical History: Bowel Resection, Joint Replacement, Orthopedic Surgery Additional Past Surgical History / Comment(s): 08/28/20 rigt SFA arthrectomy, balloon angioplasty, 11/30/15 PTCA LEFT FEM ARTERY. BOWEL RESECTION COLOSTOMY/LATER REVERSED; RT HIP REPLACED X2; RT LEG ORIF W/ MAY/ NOW REMOVED; RT ARM SX WITH PLATE/NOW REMOVED; LEFT WRIST SX.AORTOGRAM, right sfa stent Past Anesthesia/Blood Transfusion Reactions: No Reported Reaction Past Psychological History: Depression Smoking Status: Current every day smoker Past Alcohol Use History: None Reported Past Drug Use History: None Reported - Past Family History Mother Family Medical History: No Reported History Father Family Medical History: Coronary Artery Disease (CAD) Additional Family Medical History / Comment(s): CAROTID ARTERY 95% BLOCKED Medications and Allergies Home Medications Medication Instructions Recorded Confirmed Type Aspirin 81 mg PO DAILY@79911/23/14 12/26/20 History Bicalutamide [Casodex] 50 mg PO DAILY@79904/05/20 12/26/20 History Escitalopram [Lexapro] 30 mg PO DAILY@169904/05/20 12/26/20 History Folic Acid 1 mg PO DAILY@79904/05/20 12/26/20 History Furosemide [Lasix] 20 mg PO DAILY@79904/05/20 12/26/20 History Magnesium Oxide [Magox 400] 400 mg PO BID@08,199904/05/20 12/26/20 History Metoprolol Tartrate [Lopressor] 12.5 mg PO BID@799,199904/05/20 12/26/20 History QUEtiapine [SEROquel] 50 mg PO HS@199904/05/20 12/26/20 History Ramipril 10 mg PO DAILY@79904/05/20 12/26/20 History amantadine HCL [Amantadine] 100 mg PO BID@799,199904/05/20 12/26/20 History Apixaban [Eliquis] 2.5 mg PO BID@799,199912/26/20 12/26/20 History Atorvastatin [Lipitor] 80 mg PO HS@199912/26/20 12/26/20 History Calcium Carbonate/Vitamin D3 1 tab PO HS@199912/26/20 12/26/20 History [Calcium 600 mg-D3 20 mcg (800 unit)] Clopidogrel Bisulfate [Plavix] 75 mg PO DAILY@79912/26/20 12/26/20 History Cyanocobalamin (Vitamin B-12) 5,000 mcg PO DAILY@79912/26/20 12/26/20 History [Vitamin B12] Allergies Allergy/AdvReac Type Severity Reaction Status Date / Time stainless steel Allergy hip Uncoded 12/26/20 07:00 REPLACEMENT HAD TO BE REMOVED Physical Exam Vitals: Vital Signs Temp Pulse Resp BP Pulse Ox 12/26/20 08:27 83 16 142/86 92 L 12/26/20 05:48 81 20 162/80 97 12/26/20 03:23 83 30 H 153/79 91 L 12/26/20 03:01 98.1 F 70 18 135/76 75 L Intake and Output 12/25/20 12/26/20 12/26/20 22:59 06:59 14:59 Other: Weight 83.915 kg Gen. appearance the patient is lethargic yet, comfortable, no agitation, breathing is nonlabored Head exam was generally normal. There was no scleral icterus or corneal arcus. Mucous membranes were moist. Neck was supple and without jugular venous distension, thyromegaly, or carotid bruits. Carotids were easily palpable bilaterally. There was no adenopathy. Lungs sounds are diminished and the patient has crackles throughout the lung fi elds bilaterally in the mid and lower lung lacy Heart sounds are regular in the patient's systolic ejection murmur grade 4/6 heard throughout the precordium Abdominal exam revealed normal bowel sounds. The abdomen was soft, non-tender, and without masses, organomegaly, or appreciable enlargement of the abdominal aorta. Scar of a previous abdominal surgery over the anterior abdominal wall Examination of the extremities revealed easily palpable radial, femoral and pedal pulses. There was no cyanosis, clubbing or edema. Scar of previous surgery over the right knee Examination of the skin revealed no evidence of significant rashes, suspicious appearing nevi or other concerning lesions. Neurologic the patient is lethargic. He is awake and arousable. He is following simple commands. Moving all 4 extremities. No facial asymmetry. He is aware of himself and place. No agitation. Pupils are equal and reactive to light. No focal neurological deficits. Results - Laboratory Findings CBC and BMP: 12/26/20 03:16 12/26/20 03:16 ABG WBC 4.9 k/uL (3.8-10.6) 12/26/20 03:16 RBC 3.45 m/uL (4.30-5.90) L 12/26/20 03:16 Hgb 11.1 gm/dL (13.0-17.5) L 12/26/20 03:16 Hct 33.9 % (39.0-53.0) L 12/26/20 03:16 MCV 98.4 fL (80.0-100.0) 12/26/20 03:16 MCH 32.2 pg (25.0-35.0) 12/26/20 03:16 MCHC 32.7 g/dL (31.0-37.0) 12/26/20 03:16 RDW 13.4 % (11.5-15.5) 12/26/20 03:16 Plt Count 228 k/uL (150-450) 12/26/20 03:16 MPV 8.1 12/26/20 03:16 Neutrophils % 87 % 12/26/20 03:16 Lymphocytes % 4 % 12/26/20 03:16 Monocytes % 6 % 12/26/20 03:16 Eosinophils % 1 % 12/26/20 03:16 Basophils % 0 % 12/26/20 03:16 Neutrophils # 4.2 k/uL (1.3-7.7) 12/26/20 03:16 Lymphocytes # 0.2 k/uL (1.0-4.8) L 12/26/20 03:16 Monocytes # 0.3 k/uL (0-1.0) 12/26/20 03:16 Eosinophils # 0.1 k/uL (0-0.7) 12/26/20 03:16 Basophils # 0.0 k/uL (0-0.2) 12/26/20 03:16 PT 12.3 sec (9.0-12.0) H 12/26/20 03:16 INR 1.2 (<1.2) H 12/26/20 03:16 APTT 26.9 sec (22.0-30.0) 12/26/20 03:16 Sodium 137 mmol/L (137-145) 12/26/20 03:16 Potassium 4.9 mmol/L (3.5-5.1) 12/26/20 03:16 Chloride 101 mmol/L (98-107) 12/26/20 03:16 Carbon Dioxide 26 mmol/L (22-30) 12/26/20 03:16 Anion Gap 10 mmol/L 12/26/20 03:16 BUN 32 mg/dL (9-20) H 12/26/20 03:16 Creatinine 1.00 mg/dL (0.66-1.25) 12/26/20 03:16 Est GFR (CKD-EPI)AfAm 87 (>60 ml/min/1.73 sqM) 12/26/20 03:16 Est GFR (CKD-EPI)NonAf 75 (>60 ml/min/1.73 sqM) 12/26/20 03:16 Glucose 138 mg/dL (74-99) H 12/26/20 03:16 POC Glucose (mg/dL) 129 mg/dL (75-99) H 12/26/20 03:23 POC Glu [employer] [place] 12/26/20 03:23 Lactic Ac Sepsis Rflx Y 12/26/20 06:00 Plasma Lactic Acid Donnell 1.0 mmol/L (0.7-2.0) 12/26/20 08:47 Calcium 9.0 mg/dL (8.4-10.2) 12/26/20 03:16 Phosphorus 2.9 mg/dL (2.5-4.5) 12/26/20 03:16 Magnesium 2.6 mg/dL (1.6-2.3) H 12/26/20 03:16 Total Bilirubin 1.2 mg/dL (0.2-1.3) 12/26/20 03:16 AST 111 U/L (17-59) H 12/26/20 03:16 ALT 67 U/L (4-49) H 12/26/20 03:16 Alkaline Phosphatase 99 U/L (38-126) 12/26/20 03:16 Creatine Kinase 306 U/L (55-170) H 12/26/20 03:16 Troponin I 0.049 ng/mL (0.000-0.034) H* 12/26/20 03:16 Total Protein 7.3 g/dL (6.3-8.2) 12/26/20 03:16 Albumin 3.5 g/dL (3.5-5.0) 12/26/20 03:16 Urine Color Yellow 12/26/20 03:16 Urine Appearance Clear (Clear) 12/26/20 03:16 Urine pH 6.0 (5.0-8.0) 12/26/20 03:16 Ur Specific [place] 1.022 (1.001-1.035) 12/26/20 03:16 Urine Protein 1+ (Negative) H 12/26/20 03:16 Urine Glucose (UA) Negative (Negative) 12/26/20 03:16 Urine Ketones Negative (Negative) 12/26/20 03:16 Urine Blood Moderate (Negative) H 12/26/20 03:16 Urine Nitrite Negative (Negative) 12/26/20 03:16 Urine Bilirubin Negative (Negative) 12/26/20 03:16 Urine Urobilinogen <2.0 mg/dL (<2.0) 12/26/20 03:16 Ur Leukocyte Esterase Negative (Negative) 12/26/20 03:16 Urine RBC 17 /hpf (0-5) H 12/26/20 03:16 Urine WBC 3 /hpf (0-5) 12/26/20 03:16 Ur Squamous Epith Cells <1 /hpf (0-4) 12/26/20 03:16 Hyaline Casts 1 /lpf (0-2) 12/26/20 03:16 Urine Mucus Rare /hpf (None) H 12/26/20 03:16 Coronavirus (PCR) Detected (Not Detectd) A 12/26/20 06:41 PT/INR, D-dimer PT 12.3 sec (9.0-12.0) H 12/26/20 03:16 INR 1.2 (<1.2) H 12/26/20 03:16 Abnormal lab findings: Abnormal Labs 12/26/20 12/26/20 12/26/20 03:16 03:16 03:16 RBC 3.45 L Hgb 11.1 L Hct 33.9 L Lymphocytes # 0.2 L PT 12.3 H INR 1.2 H BUN Glucose POC Glucose (mg/dL) Plasma Lactic Acid Donnell Magnesium AST ALT Creatine Kinase Troponin I Urine Protein 1+ H Urine Blood Moderate H Urine RBC 17 H Urine Mucus Rare H Coronavirus (PCR) 12/26/20 12/26/20 12/26/20 03:16 03:16 03:16 RBC Hgb Hct Lymphocytes # PT INR BUN 32 H Glucose 138 H POC Glucose (mg/dL) Plasma Lactic Acid Donnell 2.1 H* Magnesium 2.6 H AST 111 H ALT 67 H Creatine Kinase 306 H Troponin I 0.049 H* Urine Protein Urine Blood Urine RBC Urine Mucus Coronavirus (PCR) 12/26/20 12/26/20 03:23 06:41 RBC Hgb Hct Lymphocytes # PT INR BUN Glucose POC Glucose (mg/dL) 129 H Plasma Lactic Acid Donnell Magnesium AST ALT Creatine Kinase Troponin I Urine Protein Urine Blood Urine RBC Urine Mucus Coronavirus (PCR) Detected A - Diagnostic Findings Chest x-ray: image reviewed Assessment and Plan Plan: 1 acute COVID-19 related pneumonia, and the symptoms have been going on for at least a week. The exact symptom onset timing is not known to me at this point. Nevertheless the patient presents with a positive PCR in the same time the pa isaiah has acute hypoxic respiratory failure in addition to constitutional symptoms and some mild transaminitis. He seems to be also dehydrated. He had diminished oral intake. He had altered mentation. He also had increased weakness and falls. Chest x-ray is consistent with COVID-19 related pneumonia. Note that the patient is a vaccinated individual. 2 acute hypoxic respiratory failure currently on 5 L of oxygen by nasal cannula 3 generalized weakness and consultation symptoms secondary to above, consider underlying dehydration 4 altered mental status secondary to above 5 history of falls 6 previous history of prostate cancer treated with radiation therapy 7 history of traumatic brain injury in 2017 8 Peripheral vascular disease 9 hypertension 10 hyperlipidemia 11 transaminitis secondary to COVID-19 infection 12 limited troponin leak without any EKG changes Plan Titrate FiO2 to maintain saturation above 90%. Currently on 6 L. Start the patient on Decadron 6 mg IV every 24 hours Stop Rocephin and Zithromax as initiated by emergency department check pro calcitonin level Check inflammatory markers including LDH and CRP and d-dimer's Continue Eliquis for now IV fluids with normal saline at the rate of 75 mL an hour CAT scan of the brain without contrast echocardiogram Resumed home medications
--- NOTE | 2020-12-26 12:08 | ECHOF ---
Referral Reason:shortness of breath MEASUREMENTS -------- HEIGHT: 180.3 cm WEIGHT: 83.9 kg BP: 172/94 RVIDd: 3.5 cm (< 3.3) IVSd: 1.4 cm (0.6 - 1.1) LVIDd: 4.4 cm (3.9 - 5.3) LVPWd: 1.5 cm (0.6 - 1.1) IVSs: 2.0 cm LVIDs: 3.1 cm LVPWs: 1.9 cm LA Diam: 3.9 cm (2.7 - 3.8) Ao Diam: 4.1 cm (2.0 - 3.7) AV Cusp: 2.5 cm (1.5 - 2.6) MV E Luis: 0.76 m/s MV DecT: 390 ms MV A Luis: 1.31 m/s MV E/A Ratio: 0.58 AV maxP.66 mmHg AV meanP.77 mmHg AR PHT: 464 ms FINDINGS -------- Sinus rhythm. This was a technically difficult study with suboptimal parasternal views. The left ventricular size is normal. There is moderate concentric left ventricular hypertrophy. O verall left ventricular systolic function is normal with, an EF between 60 - 65 %. The right ventricle is mildly enlarged. The left atrium is normal in size. The right atrium is normal in size. Interatrial and interventricular septum intact. There is moderate aortic valve sclerosis. There is mild aortic regurgitation. There is mild aorti c stenosis present. Peak/mean gradient across the Aortic Valve is 34.66mmHg / 19.77mmHg. The mitral valve leaflets are mildly thickened. Mild mitral annular calcification present. Mild m itral regurgitation is present. The tricuspid valve appears structurally normal. Unable to estimate RVSP due to inadequate TR jet s pectral doppler profile. The pulmonic valve was not well visualized. The aortic root is dilated measuring 4.1cm. Normal inferior vena cava with normal inspiratory collapse consistent with estimated right atrial pre ssure of 5 mmHg. There is no pericardial effusion. CONCLUSIONS -------- 1. The left ventricular size is normal. 2. There is moderate concentric left ventricular hypertrophy. 3. Overall left ventricular systolic function is normal with, an EF between 60 - 65 %. 4. The right ventricle is mildly enlarged. 5. There is moderate aortic valve sclerosis. 6. There is mild aortic regurgitation. 7. There is mild aortic stenosis present. 8. Peak/mean gradient across the Aortic Valve is 34.66mmHg / 19.77mmHg. 9. The mitral valve leaflets are mildly thickened. 10. Mild mitral annular calcification present. 11. Mild mitral regurgitation is present. 12. The aortic root is dilated measuring 4.1cm. 13. There is no pericardial effusion. CYTOLOGY MANAGER: Evelyn Rich RDCS
[2020-12-26] MEDS: guaiFENesin-Coden 100-10MG/5ML 10 ML CUP PO PRN ×2 (12:47→16:48)
--- NOTE | 2020-12-26 13:24 | CT ---
EXAMINATION TYPE: CT brain wo con DATE OF EXAM: 12/26/2020 COMPARISON: None HISTORY: Multiple falls in the past 9 [address] DLP: 1277.[address] of the brain was performed. The ventricles, basal cisterns and sulci overlying the cerebral convexities demonstrate mild enlargem ent. There is no evidence for intracranial hemorrhage or sulcal effacement. There is decreased attenuation about the periventricular white matter and deep white matter of both c erebral hemispheres, compatible with chronic small vessel ischemia. Differential diagnosis does inclu de demyelination. No mass effects are seen.No midline shift. Osseous calvarium is intact. If symptoms persist consider MRI. IMPRESSION: 1. Age related atrophic and chronic small vessel ischemic change without acute intracranial process s een at this time.
[2020-12-26 13:27] LABS: C Reactive Protein 24.8 mg/dL (<1.0)
[2020-12-26] MEDS: MORPHINE SULFATE 4 MG/ML SYRINGE IV PRN ×2 (16:49→20:54)
[2020-12-26] MEDS: ASCORBIC ACID 500 MG TAB PO SCH (16:50)
[2020-12-26] MEDS: CHOLECALCIFEROL 25 MCG (1000 IU) TABLET PO SCH (16:51)
[2020-12-26] MEDS: ZINC SULFATE 220 MG CAP PO SCH (16:51)
[2020-12-26] MEDS: ESCITALOPRAM 10 MG TAB PO SCH (17:54)
[2020-12-26] MEDS: MAGNESIUM OXIDE 400 MG TAB PO SCH (20:49)
[2020-12-26] MEDS: CALCIUM CARB-VIT D 500 MG-5 MCG TAB PO SCH (20:49)
[2020-12-26] MEDS: METOPROLOL TARTRATE 12.5 MG TAB PO SCH (20:49)
[2020-12-26] MEDS: ATORVASTATIN 80 MG TAB PO SCH (20:49)
[2020-12-26] MEDS: APIXABAN 2.5 MG TABLET PO SCH (20:49)
[2020-12-26] MEDS: QUEtiapine 50 MG TAB PO SCH (20:49)
[2020-12-26] MEDS ORDERED: ALPRAZolam 0.5 MG TAB PO STA (22:27)
[2020-12-27] MEDS: MORPHINE SULFATE 4 MG/ML SYRINGE IV PRN ×3 (03:23→20:49)
[2020-12-27] MEDS: guaiFENesin-Coden 100-10MG/5ML 10 ML CUP PO PRN ×2 (03:24→08:39)
[2020-12-27] MEDS: PANTOPRAZOLE 40 MG TABLET PO SCH (06:36)
--- NOTE | 2020-12-27 07:12 | XR ---
EXAMINATION TYPE: XR chest 1V portable DATE OF EXAM: 12/27/2020 COMPARISON: 12/26/2020 INDICATION: Covid TECHNIQUE: Single frontal view of the chest is obtained. FINDINGS: The heart size is normal. The pulmonary vasculature is indistinct. Right upper lobe and diffuse infiltrates to the left lung. Findings are worsened over the interval. F indings can be compatible with atypical pneumonia. IMPRESSION: 1. Diffuse worsening bilateral lung infiltrates can be compatible with atypical pneumonia.
[2020-12-27] MEDS: FUROSEMIDE 20 MG TAB PO SCH (08:14)
[2020-12-27] MEDS: APIXABAN 2.5 MG TABLET PO SCH (08:15)
[2020-12-27] MEDS: CHOLECALCIFEROL 25 MCG (1000 IU) TABLET PO SCH (08:15)
[2020-12-27] MEDS: ASPIRIN 81 MG PO SCH (08:15)
[2020-12-27] MEDS: CLOPIDOGREL 75 MG TAB PO SCH (08:15)
[2020-12-27] MEDS: ASCORBIC ACID 500 MG TAB PO SCH (08:15)
[2020-12-27] MEDS: lisinopriL 20 MG TAB PO SCH (08:15)
[2020-12-27] MEDS: CYANOCOBALAMIN 500 MCG TAB PO SCH (08:15)
[2020-12-27] MEDS: MAGNESIUM OXIDE 400 MG TAB PO SCH ×2 (08:16→20:36)
[2020-12-27] MEDS: DEXAMETHASONE SOD PHOSPHATE 10 MG/ML 1 ML VIAL IV SCH (08:16)
[2020-12-27] MEDS: FOLIC ACID 1 MG TAB PO SCH (08:16)
[2020-12-27] MEDS: BICALUTAMIDE 50 MG TAB PO SCH (08:16)
[2020-12-27 08:35] LABS: Basophils % (A) 0 %; Eosinophils # (A) 0.1 k/uL (0-0.7); Eosinophils % (A) 2 %; HCT 32.6 % (39.0-53.0); HGB 10.3 gm/dL (13.0-17.5); Lymphocytes # (A) 0.2 k/uL (1.0-4.8); Lymphocytes % (A) 3 %; MCH 32.4 pg (25.0-35.0); MCHC 31.6 g/dL (31.0-37.0); MCV 102.4 fL (80.0-100.0); Macrocytosis Slight; Mean Platelet Volume 8.4; Monocytes # (A) 0.4 k/uL (0-1.0); Monocytes % (A) 7 %; Neutrophils # (A) 4.4 k/uL (1.3-7.7); Neutrophils % (A) 87 %; Platelet Count 232 k/uL (150-450); RBC 3.18 m/uL (4.30-5.90); RDW 13.6 % (11.5-15.5)
[2020-12-27] MEDS: METOPROLOL TARTRATE 12.5 MG TAB PO SCH ×2 (08:37→20:35)
[2020-12-27] MEDS: ZINC SULFATE 220 MG CAP PO SCH (08:37)
[2020-12-27] MEDS ORDERED: AZITHROMYCIN 500 MG in SODIUM CHLORIDE 0.9% 250 ML IVPB SCH (09:00)
[2020-12-27 09:06] LABS: AST 61 U/L (17-59); African American GFR (CKD) >90 (>60 ml/min/1.73 sqM); Albumin 2.8 g/dL (3.5-5.0); Alkaline Phosphatase 96 U/L (38-126); Blood Urea Nitrogen 15 mg/dL (9-20); Carbon Dioxide 28 mmol/L (22-30); Chloride 106 mmol/L (98-107); Glucose 113 mg/dL (74-99); Non-African American GFR(CKD) 88 (>60 ml/min/1.73 sqM); Total Bilirubin 0.5 mg/dL (0.2-1.3); Total Protein 6.2 g/dL (6.3-8.2)
[2020-12-27 09:24] LABS: Potassium 4.4 mmol/L (3.5-5.1)
[2020-12-27 09:27] LABS: ALT 46 U/L (4-49); Anion Gap 6 mmol/L; Calcium 8.5 mg/dL (8.4-10.2); LDH 1137 U/L (313-618); Magnesium 2.2 mg/dL (1.6-2.3); Phosphorus 3.7 mg/dL (2.5-4.5); Sodium 140 mmol/L (137-145)
[2020-12-27 10:05] LABS: C Reactive Protein 31.9 mg/dL (<1.0)
[2020-12-27 10:47] LABS: Glucose,Whole Blood 128 mg/dL (75-99)
--- NOTE | 2020-12-27 11:40 | P.PN ---
Subjective Progress Note Date: 12/27/20 A 70-year-old male patient, a poor historian, who was originally brought into the hospital upon the request of his as the patient was found to be quite lethargic, weak, had a fall at home and he was also found to be having increased shortness of breath. He has been vaccinated for COVID-19 and he has completed his vaccination approximately 5 months ago. The chest x-ray showed diffuse but the pulmonary infiltrates and the patient checked positive for COVID-19 by PCR. As such, the patient is currently on oxygen at 6 L per minute and the pulse ox is currently 89-90%. His blood work shows a white cell count of 4.9 with a hemoglobin of 11. He has lymphopenia with a lymphocyte count of 0.2. C oagulation profile is within normal limits. Lactic acid level is at 2.1. BUN is at 32 with a creatinine of 1 and sodium of 137. He does have mild transaminitis consistent with COVID-19 infection with a AST of 111 and ALT of 67. Troponin was at 0.04. Total protein was 7.3 and a albumin of 3.5. UA showed 3 WBCs VT +1 protein. No nausea. No vomiting. He had diminished appetite. His been feeling weak all over. He was apparently getting confused at home according to the . 12/27 2020, the patient got transferred to the intensive care unit. 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 His lungs were getting more congested. Based on that, the patient was placed on 100% nonrebreather facemask and 15 and a 15 L of oxygen by nasal cannula. His current pulse ox is around 93%. He is breathing is labored and the patient has some mild to moderate shortness of breath even at rest. He is moaning. Patient also developed atrial fibrillation with rapid ventricular response. Currently heart rate is down to mid 90s and the patient is hemodynamically stable with a BP of 150/85.. Have history of paroxysmal atrial fibrillation. On yesterday's evaluation, the patient's cardiac rhythm was sinus. Note that the patient has been maintained on long-term anticoagulation with Eliquis. In terms of his blood work from today, the patient has a white cell count of 5 with a hemoglobin of 10.3. Platelet counts are 132, d-dimer is up to 5.87, BUN is a 50 with a creatinine of 0.8, sodium is 140, LDH level is 03/29/1937 with a CRP level of 31.9. The patient did receive a dose of Lasix overnight without any major improvement in his respiratory status. Earlier this morning, I chest for this patient in intensive care unit for further monitoring. He remains on Decadron 6 mg IV every 24 hours. Objective - Vital Signs Vital signs: Vital Signs Temp 98.2 F 12/27/20 10:43 Pulse 90 12/27/20 11:00 Resp 26 H 12/27/20 11:00 BP 153/87 12/27/20 11:00 Pulse Ox 95 12/27/20 11:00 Intake & Output 12/26/20 12/27/20 12/27/20 18:59 06:59 18:59 Intake Total 10 Output Total 250 Balance -240 Weight 83.915 kg 85.5 kg Intake: IV 10 Invasive Line 1 10 Output: Urine 250 Other: Voiding Method Urinal # Voids 1 - Exam Gen. appearance the patient is lethargic yet, comfortable, no agitation, breathing is nonlabored, currently on 100% nonrebreather facemask Head exam was generally normal. There was no scleral icterus or corneal arcus. Mucous membranes were moist. Neck was supple and without jugular venous distension, thyromegaly, or carotid bruits. Carotids were easily palpable bilaterally. There was no adenopathy. Lungs sounds are diminished and the patient has crackles throughout the lung lacy bilaterally in the mid and lower lung lacy Heart sounds are regular in the patient's systolic ejection murmur grade 4/6 heard throughout the precordium Abdominal exam revealed normal bowel sounds. The abdomen was soft, non-tender, and without masses, organomegaly, or appreciable enlargement of the abdominal aorta. Scar of a previous abdominal surgery over the anterior abdominal wall Examination of the extremities revealed easily palpable radial, femoral and pedal pulses. There was no cyanosis, clubbing or edema. Scar of previous surgery over the right knee Examination of the skin revealed no evidence of significant rashes, suspicious appearing nevi or other concerning lesions. Neurologic the patient is lethargic. He is awake and arousable. He is following simple commands. Moving all 4 extremities. No facial asymmetry. He is aware of himself and place. No agitation. Pupils are equal and reactive to light. No focal neurological deficits. - Labs CBC & Chem 7: 12/27/20 07:51 12/27/20 07:51 Labs: Abnormal Lab Results - Last 24 Hours (Table) 12/26/20 12/26/20 12/26/20 Range/Units 11:49 11:49 11:49 RBC (4.30-5.90) m/uL Hgb (13.0-17.5) gm/dL Hct (39.0-53.0) % MCV (80.0-100.0) fL Lymphocytes # (1.0-4.8) k/uL D-Dimer 1.54 H (<0.60) mg/L FEU Glucose (74-99) mg/dL POC Glucose (mg/dL) (75-99) mg/dL AST (17-59) U/L Lactate Dehydrogenase 1153 H (313-618) U/L C-Reactive Protein 24.8 H (<1.0) mg/dL Total Protein (6.3-8.2) g/dL Albumin (3.5-5.0) g/dL Procalcitonin 0.30 H (0.02-0.09) ng/mL 12/27/20 12/27/20 12/27/20 Range/Units 07:51 07:51 07:51 RBC 3.18 L (4.30-5.90) m/uL Hgb 10.3 L (13.0-17.5) gm/dL Hct 32.6 L (39.0-53.0) % MCV 102.4 H (80.0-100.0) fL Lymphocytes # 0.2 L (1.0-4.8) k/uL D-Dimer 5.87 H (<0.60) mg/L FEU Glucose 113 H (74-99) mg/dL POC Glucose (mg/dL) (75-99) mg/dL AST 61 H (17-59) U/L Lactate Dehydrogenase 1137 H (313-618) U/L C-Reactive Protein 31.9 H (<1.0) mg/dL Total Protein 6.2 L (6.3-8.2) g/dL Albumin 2.8 L (3.5-5.0) g/dL Procalcitonin (0.02-0.09) ng/mL 12/27/20 Range/Units 10:46 RBC (4.30-5.90) m/uL Hgb (13.0-17.5) gm/dL Hct (39.0-53.0) % MCV (80.0-100.0) fL Lymphocytes # (1.0-4.8) k/uL D-Dimer (<0.60) mg/L FEU Glucose (74-99) mg/dL POC Glucose (mg/dL) 128 H (75-99) mg/dL AST (17-59) U/L Lactate Dehydrogenase (313-618) U/L C-Reactive Protein (<1.0) mg/dL Total Protein (6.3-8.2) g/dL Albumin (3.5-5.0) g/dL Procalcitonin (0.02-0.09) ng/mL Assessment and Plan Plan: 1 acute COVID-19 related pneumonia, and the symptoms have been going on for at least a week. The exact symptom onset timing is not known to me at this point. Nevertheless the patient presents with a positive PCR in the same time the patient has acute hypoxic respiratory failure in addition to constitutional symptoms and some mild transaminitis. He seems to be also dehydrated. He had diminished oral intake. He had altered mentation. He also had increased weakness and falls. Chest x-ray is consistent with COVID-19 related pneumonia. Note that the patient is a vaccinated individual. The patient overnight got worse and the patient is worsening in her oxygenation. Currently on 100% nonrebreather facemask and the patient got transferred to the intensive care unit. Inflammatory markers were noted. LDH level is 1137. CRP level is elevated at 31.9. Progesterone level is low at 0.3. White cell count is at 5. The patient remains on Decadron 60 g IV every 24 hours. 2 acute hypoxic respiratory failure currently on 100% nonrebreather facemask to maintain a saturation above 90%. Repeat chest x-ray showed worsening of the bilateral pulmonary infiltrates consistent with COVID-19 related pneumonia. 3 generalized weakness and consultation symptoms secondary to above, consider underlying dehydration 4 altered mental status secondary to above 5 history of falls 6 previous history of prostate cancer treated with radiation therapy 7 history of traumatic brain injury in 2017 8 Peripheral vascular disease 9 hypertension 10 hyperlipidemia 11 transaminitis secondary to COVID-19 infection 12 limited troponin leak without any EKG changes 13 atrial fibrillation, rate is controlled, Plan Give the patient dose of Lasix 40 mg IV 1. The patient 100% nonrebreather facemask Continue Decadron 6 mg IV every 24 hours pro calcitonin level is low and the patient will be started on Baricitinib per protocol Check inflammatory markers including LDH and CRP and d-dimer's in a.m. Continue Eliquis for now adjusted dose of lisinopril 5 mg twice a day IV fluid KVO CAT scan of the brain without contrastIs nonspecific echocardiogram shows an ejection fraction of 6065%. No significant valvular abnormalities. Mild aortic stenosis. Resumed home medications
[2020-12-27] MEDS ORDERED: FUROSEMIDE 10 MG/ML 4 ML VIAL IV STA (11:47)
[2020-12-27] MEDS: SODIUM CHLORIDE 0.9% 1,000 ML IV SCH (11:51)
[2020-12-27] MEDS: LORazepam 2 MG/ML INJ IV PRN (11:51)
[2020-12-27] MEDS: DEXMEDETOMIDINE/0.9% NACL(PMX) 400 MCG in EMPTY BAG 1 BAG IV SCH (13:13)
--- NOTE | 2020-12-27 13:23 | P.PN ---
Subjective Progress Note Date: 12/27/20 Principal diagnosis: Patient is a 70 yo CM with a hx of HLD, HTN, TBI, and PAD who presented weakness and shortness of breath. He was found to have hypoxia. Chest x-ray demonstrated intersitital fibroisis and right upper lobe consolidation. CT head and cervial spine showed no acute process. Lumbar CT showed disc herniatiaion with mild relative spinal stenosis. He was vaccinated for COVID-19 with [employer] on 07/17. He was admitted and pulmonary was consulted. He was started on dexamethasone, vitamin C, vitamin D, and zinc. Overnight on 12/26 he became increasingly hypoxic. He was subsequently transferred to the ICU and was noted to be in A. fib with RVR. He was also started on bare segment. His Eliquis was increased to 5 mg twice daily. Patient seen and examined at bedside. He is very confused and thinks he is in a space ship He feels short of breath, pain all over, lightheaded and dizzy, and as though he could pass out. General: Ill-appearing, moderate distress, appears at stated age Derm: warm, dry Head: atraumatic, normocephalic, symmetric Eyes: EOMI, no lid lag, anicteric sclera Mouth: no lip lesion, mucus membranes moist Cardiovascular: S1S2 reg, no murmur, positive posterior tibial pulse bilateral, Lungs: Coarse breath sounds bilateral, 3 word conversational dyspnea, no accessory muscle use Abdominal: soft, nontender to palpation, no guarding, no appreciable organomegaly Ext: no gross muscle atrophy, no edema, no contractures Neuro: CN II-XI grossly intact, no focal neuro deficits Psych: Alert, oriented to self, appears anxious Acute hypoxic respiratory failure COVID-19 pneumonitis ARDS Delerium -Continue with dexamethasone day #2, Barcitinib #1 -Zinc, vitamin C, vitamin D -Increase Eliquis to 5 mg twice daily -Case discussed with pulmonary. Appreciate recommendations. Hypertension -Follow blood pressures -Continue his current medication regimen Dyslipidemia - lipitor Paroxysmal atrial fibrillation with rapid ventricular response -Continue with Eliquis increased to 5 twice daily - metoprolol Chronic medical conditions include: Peripheral vascular disease TBI History of prostate cancer Patient is a 70 yo CM with a hx of HLD, HTN, TBI, and PAD who presented weakness and shortness of breath. He was found to have hypoxia. Chest x-ray demonstrated intersitital fibroisis and right upper lobe consolidation. CT head and cervial spine showed no acute process. Lumbar CT showed disc herniatiaion with mild rela tive spinal stenosis. He was vaccinated for COVID-19 with [employer] on 07/17. He was admitted and pulmonary was consulted. He was started on dexamethasone, vitamin C, vitamin D, and zinc. Overnight on 12/26 he became increasingly hypoxic. He was subsequently transferred to the ICU and was noted to be in A. fib with RVR. He was also started on bare segment. His Eliquis was increased to 5 mg twice daily. Patient seen and examined at bedside. He is very confused and thinks he isn't a s patient. He feels short of breath, pain all over, lightheaded and dizzy, and as though he could pass out. General: Ill-appearing, moderate distress, appears at stated age Derm: warm, dry Head: atraumatic, normocephalic, symmetric Eyes: EOMI, no lid lag, anicteric sclera Mouth: no lip lesion, mucus membranes moist Cardiovascular: S1S2 reg, no murmur, positive posterior tibial pulse bilateral, Lungs: Coarse breath sounds bilateral, 3 word conversational dyspnea, no accessory muscle use Abdominal: soft, nontender to palpation, no guarding, no appreciable organomegaly Ext: no gross muscle atrophy, no edema, no contractures Neuro: CN II-XI grossly intact, no focal neuro deficits Psych: Alert, oriented to self, appears anxious Acute hypoxic respiratory failure COVID-19 pneumonitis ARDS Delerium -Continue with dexamethasone day #2, Barcitinib #1 -Zinc, vitamin C, vitamin D -Increase Eliquis to 5 mg twice daily -Case discussed with pulmonary. Appreciate recommendations. Hypertension -Follow blood pressures -Continue his current medication regimen Dyslipidemia - lipitor Paroxysmal atrial fibrillation with rapid ventricular response -Continue with Eliquis increased to 5 twice daily - metoprolol Chronic medical conditions include: Peripheral vascular disease TBI History of prostate cancer Objective - Vital Signs Vital signs: Vital Signs Temp 98 F 12/27/20 12:00 Pulse 103 H 12/27/20 12:00 Resp 25 H 12/27/20 12:00 BP 153/85 12/27/20 12:00 Pulse Ox 97 12/27/20 12:00 Intake & Output 0912/27/20 12/27/20 18:59 06:59 18:59 Intake Total 10 20 Output Total 250 125 Balance -240 -105 Weight 83.915 kg 85.5 kg Intake: IV 10 Invasive Line 1 10 Intake, IV Titration 20 Amount Sodium Chloride 0.9% 1, 20 000 ml @ 20 mls/hr IV . Q24H [facility] Rx#:[id number] Output: Urine 250 125 Other: Voiding Method Urinal # Voids 1 - Labs CBC & Chem 7: 12/27/20 07:51 12/27/20 07:51 Labs: Abnormal Lab Results - Last 24 Hours (Table) 12/26/20 12/26/20 12/27/20 Range/Units 11:49 11:49 07:51 RBC 3.18 L (4.30-5.90) m/uL Hgb 10.3 L (13.0-17.5) gm/dL Hct 32.6 L (39.0-53.0) % MCV 102.4 H (80.0-100.0) fL Lymphocytes # 0.2 L (1.0-4.8) k/uL D-Dimer (<0.60) mg/L FEU Glucose (74-99) mg/dL POC Glucose (mg/dL) (75-99) mg/dL AST (17-59) U/L Lactate Dehydrogenase (313-618) U/L C-Reactive Protein 24.8 H (<1.0) mg/dL Total Protein (6.3-8.2) g/dL Albumin (3.5-5.0) g/dL Procalcitonin 0.30 H (0.02-0.09) ng/mL 12/27/20 12/27/20 12/27/20 Range/Units 07:51 07:51 10:46 RBC (4.30-5.90) m/uL Hgb (13.0-17.5) gm/dL Hct (39.0-53.0) % MCV (80.0-100.0) fL Lymphocytes # (1.0-4.8) k/uL D-Dimer 5.87 H (<0.60) mg/L FEU Glucose 113 H (74-99) mg/dL POC Glucose (mg/dL) 128 H (75-99) mg/dL AST 61 H (17-59) U/L Lactate Dehydrogenase 1137 H (313-618) U/L C-Reactive Protein 31.9 H (<1.0) mg/dL Total Protein 6.2 L (6.3-8.2) g/dL Albumin 2.8 L (3.5-5.0) g/dL Procalcitonin (0.02-0.09) ng/mL
--- NOTE | 2020-12-27 14:28 | CDI ---
Documentation Clarification Form Date: 12/27/2020 02:14:58 PM From: Eve Roberts CCS, CCDS Admit Date: 12/26/2020 06:23:00 AM Patient Name: Hakeem Valdes Visit Number: [id number] Discharge Date: ATTENTION: The Clinical Documentation Specialists (CDI) and [facility] Coding Staff appreciate your assistance in clarifying documentation. Please respond to the clarification below the line at the bottom and electronically sign. The CDI & [facility] Coding staff will review the response and follow-up if needed. Please note: Queries are made part of the Legal Health Record. If you have any questions, please contact the author of this message via ITS. Dr. Belem Pedro: Per the 12/26 Pulmonary Consult and the subsequent Pulmonary and Attending Progress Notes on 12/27: the patient is very confused. Additional clarification regarding the patient's documented confusion is requested. History/Risk Factors per the 12/26 H/P: Hypertension, Hyperlipidemia, PVD, Traumatic Brain Injury, Prostate Cancer status post Radiation treatment, Paroxysmal Atrial Fibrillation, PVD, Depression and Smoker. Clinical Indicators: Presented to the ED on 12/26 with weakness and fall at home. ED Clinical Impression: Fall, Weakness, Altered Mental Status, Pneumonia, UTI and Hypoxia Per the 12/26 H/P: Acute Respiratory Failure with Hypoxia secondary to COVID 19 Pneumonia. 12/26 VS: T 98.1, P 70 - 83; R 18 - 30; BP 135/76 - 162/80; PO 75 RA - 92 6Lnc 12/27 VS: T 98.2, P 101 - 103; R 26 (SOB, shallow, tachypnea), BP 129/74, PO 94 15L high flow - BiPAP ordered. 12/26 LAB: WBC 4.9, Hgb 11.1, Hct 33.9, Neut 4.2, Lymph 0.2; PT 12.3, INR 1.2, D Dimer 1.54; BUN 32, Glucose 138, Lactic Acid 2.1, Mag 2.6, AST 111, ALT 67, Cr Kinase 306, Troponin 0.049, CRP 24.8, Procalcitonin 0.30. UA: 1+ Protein, Mod Blood, RBC 17 COVID: POSITIVE CT Brain 12/26: Cerebral Atrophy and chronic small vessel ischemia, no acute intracranial abnormality. 12/[address] Brain: Age related atrophic and chronic small vessel ischemic change without acute intracranial process seen at this time. Treatment: ICU, Urine Culture, O2 2Lnc, (12/27: BiPAP); IV fl bolus 1,000 mls @ 999 mls/hr q1H, IV Azithromycin, IV Rocephin, IV Morphine, IV Protonix, po Vit C, po Vit D3, po Orazinc, po Seroquel. 12/27: IV Decadron, IV Ativan Consults: Pulmonary Please clarify the type of encephalopathy, if known: [ ] Metabolic Encephalopathy [ ] Septic Encephalopathy [ ] If Septic, please clarify Sepsis [ ] Toxic Encephalopathy [ ] Other, please specify [ ] Unable to determine (Template Last Revised: May 2020) Delirium, undetermined cause as per my note. MTDD
[2020-12-27] MEDS: BARICITINIB 2 MG TABLET PO SCH (17:51)
[2020-12-27] MEDS: ESCITALOPRAM 10 MG TAB PO SCH (17:52)
[2020-12-27] MEDS: CALCIUM CARB-VIT D 500 MG-5 MCG TAB PO SCH (20:35)
[2020-12-27] MEDS: QUEtiapine 50 MG TAB PO SCH (20:36)
[2020-12-27] MEDS: APIXABAN 5 MG TAB PO SCH (20:36)
[2020-12-27] MEDS: ATORVASTATIN 80 MG TAB PO SCH (20:36)
[2020-12-28 05:42] LABS: HCT 28.6 % (39.0-53.0); HGB 9.1 gm/dL (13.0-17.5); MCH 32.7 pg (25.0-35.0); MCHC 31.7 g/dL (31.0-37.0); Macrocytosis Slight; Mean Platelet Volume 8.4; Platelet Count 232 k/uL (150-450); RBC 2.78 m/uL (4.30-5.90); RDW 13.7 % (11.5-15.5); WBC 3.2 k/uL (3.8-10.6)
[2020-12-28 05:56] LABS: ALT 35 U/L (4-49); AST 51 U/L (17-59); African American GFR (CKD) >90 (>60 ml/min/1.73 sqM); Albumin 2.6 g/dL (3.5-5.0); Alkaline Phosphatase 90 U/L (38-126); Blood Urea Nitrogen 30 mg/dL (9-20); Calcium 8.5 mg/dL (8.4-10.2); Carbon Dioxide 27 mmol/L (22-30); Glucose 137 mg/dL (74-99); LDH 979 U/L (313-618); Non-African American GFR(CKD) 78 (>60 ml/min/1.73 sqM); Potassium 4.9 mmol/L (3.5-5.1); Sodium 141 mmol/L (137-145); Total Bilirubin 0.6 mg/dL (0.2-1.3); Total Protein 5.7 g/dL (6.3-8.2)
[2020-12-28] MEDS: DEXMEDETOMIDINE/0.9% NACL(PMX) 400 MCG in EMPTY BAG 1 BAG IV SCH ×2 (06:09→19:45)
[2020-12-28 06:42] LABS: Anion Gap 5 mmol/L; Chloride 109 mmol/L (98-107)
--- NOTE | 2020-12-28 06:52 | XR ---
EXAMINATION TYPE: XR chest 1V portable DATE OF EXAM: 12/28/2020 CLINICAL HISTORY: Difficulty breathing progress study. COVID. TECHNIQUE: Single AP portable upright view of the chest is obtained. COMPARISON: Chest x-ray from one day earlier and older studies. FINDINGS: Persistent elevated left hemidiaphragm. Persistent reticular and reticulonodular multifoca l opacities greatest in the mid to upper lungs though some involvement in the bases near diaphragm si nce present. There is improved aeration in the left lung base from one day earlier. Cardiac silhouett e size is stable and mildly enlarged with atherosclerotic aorta. Multilevel spurring in the thoracic spine. Old posterior left upper third rib fracture. IMPRESSION: Bilateral reticular and reticulonodular multifocal opacities consistent with covid-19 inf ection, some improved aeration left lower lung noted from one day earlier.
[2020-12-28 07:46] LABS: C Reactive Protein 32.5 mg/dL (<1.0)
[2020-12-28] MEDS: ASCORBIC ACID 500 MG TAB PO SCH (08:45)
[2020-12-28] MEDS: CHOLECALCIFEROL 25 MCG (1000 IU) TABLET PO SCH (08:45)
[2020-12-28] MEDS: DEXAMETHASONE SOD PHOSPHATE 10 MG/ML 1 ML VIAL IV SCH (08:45)
[2020-12-28] MEDS: APIXABAN 5 MG TAB PO SCH ×2 (08:45→19:44)
[2020-12-28] MEDS: ASPIRIN 81 MG PO SCH (08:45)
[2020-12-28] MEDS: PANTOPRAZOLE 40 MG TABLET PO SCH (08:45)
[2020-12-28] MEDS: FUROSEMIDE 20 MG TAB PO SCH (08:46)
[2020-12-28] MEDS: METOPROLOL TARTRATE 12.5 MG TAB PO SCH ×2 (08:46→19:44)
[2020-12-28] MEDS: lisinopriL 20 MG TAB PO SCH (08:46)
[2020-12-28] MEDS: BARICITINIB 2 MG TABLET PO SCH (08:46)
[2020-12-28] MEDS: ZINC SULFATE 220 MG CAP PO SCH (08:46)
[2020-12-28] MEDS: MAGNESIUM OXIDE 400 MG TAB PO SCH ×2 (08:47→19:44)
[2020-12-28] MEDS: FOLIC ACID 1 MG TAB PO SCH (08:47)
[2020-12-28] MEDS: BICALUTAMIDE 50 MG TAB PO SCH (08:49)
[2020-12-28] MEDS: CYANOCOBALAMIN 500 MCG TAB PO SCH (08:53)
[2020-12-28] MEDS: CLOPIDOGREL 75 MG TAB PO SCH (08:53)
--- NOTE | 2020-12-28 10:14 | P.PN ---
Subjective Progress Note Date: 12/28/20 A 70-year-old male patient, a poor historian, who was originally brought into the hospital upon the request of his as the patient was found to be quite lethargic, weak, had a fall at home and he was also found to be having increased shortness of breath. He has been vaccinated for COVID-19 and he has completed his vaccination approximately 5 months ago. The chest x-ray showed diffuse but the pulmonary infiltrates and the patient checked positive for COVID-19 by PCR. As such, the patient is currently on oxygen at 6 L per minute and the pulse ox is currently 89-90%. His blood work shows a white cell count of 4.9 with a hemoglobin of 11. He has lymphopenia with a lymphocyte count of 0.2. Co agulation profile is within normal limits. Lactic acid level is at 2.1. BUN is at 32 with a creatinine of 1 and sodium of 137. He does have mild transaminitis consistent with COVID-19 infection with a AST of 111 and ALT of 67. Troponin was at 0.04. Total protein was 7.3 and a albumin of 3.5. UA showed 3 WBCs ID +1 protein. No nausea. No vomiting. He had diminished appetite. His been feeling weak all over. He was apparently getting confused at home according to the . 12/27 2020, the patient got transferred to the intensive care unit. Late at nighttime and arterial embalmer hours, the patient was having more difficulty in breathing and he was becoming progressively more hypoxic. His lungs were getting more congested. Based on that, the patient was placed on 100% nonrebreather facemask and 15 and a 15 L of oxygen by nasal cannula. His current pulse ox is around 93%. He is breathing is labored and the patient has some mild to moderate shortness of breath even at rest. He is moaning. Patient also developed atrial fibrillation with rapid ventricular response. Currently heart rate is down to mid 90s and the patient is hemodynamically stable with a BP of 150/85.. Have history of paroxysmal atrial fibrillation. On yesterday's evaluation, the patient's cardiac rhythm was sinus. Note that the patient has been maintained on long-term anticoagulation with Eliquis. In terms of his blood work from today, the patient has a white cell count of 5 with a hemoglobin of 10.3. Platelet counts are 132, d-dimer is up to 5.87, BUN is a 50 with a creatinine of 0.8, sodium is 140, LDH level is 03/29/1937 with a CRP level of 31.9. The patient did receive a dose of Lasix overnight without any major improvement in his respiratory status. Earlier this morning, I chest for this patient in intensive care unit for further monitoring. He remains on Decadron 6 mg IV every 24 hours. The patient is seen today 12/28/2020 in follow-up in the intensive care unit. He is currently sitting up in bed. Awake and alert. He is on BiPAP 12/8 and 40% FiO2 to maintain O2 saturations in the low 90s. Chest x-ray reveals bilateral reticular and reticulonodular multifocal opacities consistent with COVID-19 pneumonia. Some slight improvement compared to yesterday. He is afebrile. Hemodynamically stable. He is calm and comfortable currently on Precedex at 0.2 mcg/kg/h. 0.9 normal saline at KVO. Urine culture is pending. White count 3.2. Hemoglobin 9.1. D-dimer 31.6. Sodium 141. Potassium 4.9. Creatinine 0.98. LDH 979. C-reactive protein 32.5. He is continued on Eliquis 5 mg twice a day along with Decadron IV 6 mg daily, vitamin supplements and on Baricitinib. Objective - Vital Signs Vital signs: Vital Signs Temp 98.5 F 12/28/20 00:00 Pulse 72 12/28/20 06:00 Resp 23 12/28/20 06:00 BP 122/67 12/28/20 06:00 Pulse Ox 90 L 12/28/20 06:00 Intake & Output 12/27/20 12/28/20 12/28/20 18:59 06:59 18:59 Intake Total 173.761 286.777 20 Output Total 355 380 20 Balance -181.239 -93.223 0 Intake: Intake, IV Titration 173.761 286.777 20 Amount Dexmedetomidine/0.9% NaCl 33.761 46.777 (Pmx) 400 mcg In Empty Bag 1 bag @ 0.2 MCG/KG/HR 4.275 mls/hr IV .[id number] [facility] Rx#:[id number] Sodium Chloride 0.9% 1, 140 240 20 000 ml @ 20 mls/hr IV . Q24H [facility] Rx#:[id number] Output: Urine 355 380 20 Other: Voiding Method Indwelling Catheter Indwelling Catheter # Voids 1 - Exam Gen. appearance the patient is awake, alert, 70-year-old gentleman, on BiPAP 12/8 and 40% FiO2,, comfortable, no agitation, breathing is nonlabored Head exam was generally normal. There was no scleral icterus or corneal arcus. Mucous membranes were moist. Neck was supple and without jugular venous distension, thyromegaly, or carotid bruits. Carotids were easily palpable bilaterally. There was no adenopathy. Lungs sounds are diminished and the patient has crackles throughout the lung lacy bilaterally in the mid and lower lung lacy Heart sounds are regular in the patient's systolic ejection murmur grade 4/6 heard throughout the precordium Abdominal exam revealed normal bowel sounds. The abdomen was soft, non-tender, and without masses, organomegaly, or appreciable enlargement of the abdominal aorta. Scar of a previous abdominal surgery over the anterior abdominal wall Examination of the extremities revealed easily palpable radial, femoral and pedal pulses. There was no cyanosis, clubbing or edema. Scar of previous surgery over the right knee Examination of the skin revealed no evidence of significant rashes, suspicious appearing nevi or other concerning lesions. Neurologic the patient is lethargic. He is awake and alert. He is following si mple commands. Moving all 4 extremities. No facial asymmetry. He is aware of himself and place. No agitation. Pupils are equal and reactive to light. No focal neurological deficits. - Labs CBC & Chem 7: 12/28/20 05:19 12/28/20 05:19 Labs: Abnormal Lab Results - Last 24 Hours (Table) 12/27/20 12/27/20 12/28/20 Range/Units 07:51 10:46 05:19 WBC 3.2 L (3.8-10.6) k/uL RBC 2.78 L (4.30-5.90) m/uL Hgb 9.1 L (13.0-17.5) gm/dL Hct 28.6 L (39.0-53.0) % MCV 103.0 H (80.0-100.0) fL D-Dimer (<0.60) mg/L FEU Chloride (98-107) mmol/L BUN (9-20) mg/dL Glucose (74-99) mg/dL POC Glucose (mg/dL) 128 H (75-99) mg/dL Lactate Dehydrogenase (313-618) U/L C-Reactive Protein 31.9 H (<1.0) mg/dL Total Protein (6.3-8.2) g/dL Albumin (3.5-5.0) g/dL 12/28/20 12/28/20 Range/Units 05:19 05:26 WBC (3.8-10.6) k/uL RBC (4.30-5.90) m/uL Hgb (13.0-17.5) gm/dL Hct (39.0-53.0) % MCV (80.0-100.0) fL D-Dimer 31.68 H (<0.60) mg/L FEU Chloride 109 H (98-107) mmol/L BUN 30 H (9-20) mg/dL Glucose 137 H (74-99) mg/dL POC Glucose (mg/dL) (75-99) mg/dL Lactate Dehydrogenase 979 H (313-618) U/L C-Reactive Protein 32.5 H (<1.0) mg/dL Total Protein 5.7 L (6.3-8.2) g/dL Albumin 2.6 L (3.5-5.0) g/dL Microbiology - Last 24 Hours (Table) 12/27/20 11:20 Urine Culture - Preliminary Urine,Catheterized Assessment and Plan Assessment: 1 acute COVID-19 related pneumonia, and the symptoms have been going on for at least a week. The exact symptom onset timing is not known to me at this point. Nevertheless the patient presents with a positive PCR in the same time the patient has acute hypoxic respiratory failure in addition to constitutional symptoms and some mild transaminitis. Chest x-ray is consistent with COVID-19 related pneumonia. He had been vaccinated by one dose J&J vaccine. The patient remains on Decadron mg IV every 24 hours, anticoagulated with Eliquis, con tinued on Baricitinib and vitamin supplements 2 acute hypoxic respiratory failure currently on BiPAP 12/8 and 40% FiO2 to maintain a saturation above 90%. Repeat chest x-ray showed similar bilateral pulmonary infiltrates consistent with COVID-19 related pneumonia. 3 generalized weakness and consultation symptoms secondary to above, consider underlying dehydration 4 altered mental status secondary to above 5 history of falls 6 previous history of prostate cancer treated with radiation therapy 7 history of traumatic brain injury in 2017 8 Peripheral vascular disease 9 hypertension 10 hyperlipidemia 11 transaminitis secondary to COVID-19 infection 12 limited troponin leak without any EKG changes 13 atrial fibrillation, rate is controlled, anticoagulated with Eliquis Plan: The patient was seen and evaluated by Dr. Syed Chest x-ray and labs reviewed Trial him off the BiPAP and go back to high flow nasal cannula Continue Precedex as needed Anticoagulated with Eliquis Remains on Baricitinib, Decadron, vitamin supplements Repeat labs and x-ray in a.m. We will continue to follow and make further recommendations based on his clinical status I, the cosigning physician, performed a history & physical examination of the patient. Lungs sounds with crackles in bilateral bases. Maintaining good O2 saturations in the 90s on BiPAP 12/8 and 40% FiO2. I discussed the assessment and plan of care with my nurse practitioner, Frannie Kelly. I attest to the above note as dictated by her.
[2020-12-28] MEDS: SODIUM CHLORIDE 0.9% 1,000 ML IV SCH (11:50)
--- NOTE | 2020-12-28 15:43 | P.PN ---
Subjective Progress Note Date: 12/28/20 70-year-old male was admitted 3 days ago with COVID-19 pneumonia, acute hypoxic history failure, with underlying history of pulmonary fibrosis. His respirations status has been steadily declining over the last few days, and last night he was transferred to the ICU due to increasing oxygen requirements. He is currently on high flow nasal cannula, he had been on BiPAP at night. He is complaining of mild shortness of breath at rest, denies any chest pain, no cough fevers or chills. He did develop A. fib with RVR last night which has been well-controlled this morning Objective - Vital Signs Vital signs: Vital Signs Temp 98.3 F 12/28/20 12:00 Pulse 59 L 12/28/20 15:00 Resp 17 12/28/20 15:00 BP 163/101 12/28/20 15:00 Pulse Ox 91 L 12/28/20 15:00 Intake & Output 12/27/20 12/28/20 12/28/20 18:59 06:59 18:59 Intake Total 173.761 286.777 654.058 Output Total 355 380 290 Balance -181.239 -93.223 364.058 Intake: Intake, IV Titration 173.761 286.777 214.058 Amount Dexmedetomidine/0.9% NaCl 33.761 46.777 34.058 (Pmx) 400 mcg In Empty Bag 1 bag @ 0.2 MCG/KG/HR 4.275 mls/hr IV .[id number] [facility] Rx#:[id number] Sodium Chloride 0.9% 1, 140 240 180 000 ml @ 20 mls/hr IV . Q24H [facility] Rx#:[id number] Oral 440 Output: Urine 355 380 290 Other: Voiding Method Indwelling Catheter Indwelling Catheter Indwelling Catheter # Voids 1 - Exam General: Ill-appearing, moderate distress, appears at stated age Derm: warm, dry Head: atraumatic, normocephalic Eyes: EOMI, no lid lag, anicteric sclera Mouth: Dry mucous membranes, oropharynx clear Cardiovascular: Irregularly irregular, normal rate, no murmur distal pulses are equal and palpable Lungs: Coarse breath sounds bilateral, no wheezing no accessory muscle use Abdominal: soft, nontender to palpation, no guarding, no appreciable organomegaly Ext: no gross muscle atrophy, no edema, no contractures Neuro: CN II-XI grossly intact, no focal neuro deficits - Labs CBC & Chem 7: 12/28/20 05:19 12/28/20 05:19 Labs: Abnormal Lab Results - Last 24 Hours (Table) 12/28/20 12/28/20 12/28/20 Range/Units 05:19 05:19 05:26 WBC 3.2 L (3.8-10.6) k/uL RBC 2.78 L (4.30-5.90) m/uL Hgb 9.1 L (13.0-17.5) gm/dL Hct 28.6 L (39.0-53.0) % MCV 103.0 H (80.0-100.0) fL D-Dimer 31.68 H (<0.60) mg/L FEU Chloride 109 H (98-107) mmol/L BUN 30 H (9-20) mg/dL Glucose 137 H (74-99) mg/dL Ferritin 487.0 H (22.0-322.0) ng/mL Lactate Dehydrogenase 979 H (313-618) U/L C-Reactive Protein 32.5 H (<1.0) mg/dL Total Protein 5.7 L (6.3-8.2) g/dL Albumin 2.6 L (3.5-5.0) g/dL Microbiology - Last 24 Hours (Table) 12/27/20 11:20 Urine Culture - Final Urine,Catheterized Assessment and Plan Plan: Acute hypoxic respiratory failure Worsening oxygen requirement, transferred to the ICU He was on BiPAP last night, currently unheeded-with oxygen saturation in the low to mid 90s COVID-19 pneumonitis -Worsened over the last 24-48 hours -Continue with dexamethasone day #3, Barcitinib #2 -Zinc, vitamin C, vitamin D -Appreciate further recommendations per pulmonology -Continue monitoring inflammatory markers, pro-calcitonin, CRP, d-dimer Hypertension -Follow blood pressures -Continue his current medication regimen Dyslipidemia - lipitor Paroxysmal atrial fibrillation with rapid ventricular response -Continue with Eliquis increased to 5 twice daily - metoprolol
[2020-12-28] MEDS: MORPHINE SULFATE 4 MG/ML SYRINGE IV PRN ×2 (15:50→22:38)
[2020-12-28] MEDS: ESCITALOPRAM 10 MG TAB PO SCH (16:45)
[2020-12-28] MEDS: ATORVASTATIN 80 MG TAB PO SCH (19:44)
[2020-12-28] MEDS: QUEtiapine 50 MG TAB PO SCH (19:44)
[2020-12-28] MEDS: CALCIUM CARB-VIT D 500 MG-5 MCG TAB PO SCH (19:44)
[2020-12-28] MEDS: LORazepam 2 MG/ML INJ IV PRN (20:54)
[2020-12-28] MEDS: HALOPERIDOL LACTATE 5 MG/ML 1 ML VIAL IVP PRN (22:55)
[2020-12-29] MEDS: HALOPERIDOL LACTATE 5 MG/ML 1 ML VIAL IVP PRN ×6 (00:01→20:12)
[2020-12-29] MEDS: DEXMEDETOMIDINE/0.9% NACL(PMX) 400 MCG in EMPTY BAG 1 BAG IV SCH ×8 (00:49→23:08)
[2020-12-29] MEDS: LORazepam 2 MG/ML INJ IV PRN ×2 (01:51→18:03)
[2020-12-29] MEDS: MORPHINE SULFATE 4 MG/ML SYRINGE IV PRN ×2 (03:33→18:03)
[2020-12-29 04:16] LABS: Basophils % (A) 0 %; Eosinophils % (A) 0 %; HGB 10.6 gm/dL (13.0-17.5); Lymphocytes # (A) 0.2 k/uL (1.0-4.8); Lymphocytes % (A) 5 %; MCHC 31.3 g/dL (31.0-37.0); MCV 102.3 fL (80.0-100.0); Macrocytosis Slight; Mean Platelet Volume 8.3; Monocytes # (A) 0.3 k/uL (0-1.0); Monocytes % (A) 7 %; Neutrophils # (A) 4.2 k/uL (1.3-7.7); Neutrophils % (A) 87 %; Platelet Count 265 k/uL (150-450); RBC 3.33 m/uL (4.30-5.90); RDW 13.6 % (11.5-15.5); WBC 4.8 k/uL (3.8-10.6)
[2020-12-29 04:37] LABS: Albumin 2.8 g/dL (3.5-5.0); Calcium 8.8 mg/dL (8.4-10.2); Potassium 5.5 mmol/L (3.5-5.1); Total Bilirubin 0.6 mg/dL (0.2-1.3); Total Protein 6.2 g/dL (6.3-8.2)
[2020-12-29] MEDS: PANTOPRAZOLE 40 MG TABLET PO SCH (04:56)
--- NOTE | 2020-12-29 06:17 | XR ---
EXAMINATION TYPE: XR chest 1V portable DATE OF EXAM: 12/29/2020 CLINICAL HISTORY: Difficulty breathing and hypoxia progress study. TECHNIQUE: Single AP portable semiupright view of the chest is obtained. COMPARISON: Chest x-ray from one day earlier and older studies FINDINGS: Persistent elevated left hemidiaphragm. Persistent reticular and reticulonodular multifoca l opacities greatest in the mid to upper lungs is present. There is worsening left-sided findings not ed from one day earlier. Cardiac silhouette size is stable and mildly enlarged with atherosclerotic a oksana. Multilevel spurring in the thoracic spine. Old posterior lateral left fourth rib fracture redem onstrated. IMPRESSION: Bilateral reticular and reticulonodular multifocal opacities consistent with covid-19 inf ection, worsening findings in the left upper and mid lung noted from one day earlier.
[2020-12-29] MEDS: APIXABAN 5 MG TAB PO SCH ×2 (09:00→19:24)
[2020-12-29] MEDS: ASPIRIN 81 MG PO SCH (09:00)
[2020-12-29] MEDS: CYANOCOBALAMIN 500 MCG TAB PO SCH (09:01)
[2020-12-29] MEDS: CLOPIDOGREL 75 MG TAB PO SCH (09:01)
[2020-12-29] MEDS: BICALUTAMIDE 50 MG TAB PO SCH (09:01)
[2020-12-29] MEDS: FOLIC ACID 1 MG TAB PO SCH (09:02)
[2020-12-29] MEDS: CHOLECALCIFEROL 25 MCG (1000 IU) TABLET PO SCH (09:02)
[2020-12-29] MEDS: ASCORBIC ACID 500 MG TAB PO SCH (09:02)
[2020-12-29] MEDS: BARICITINIB 2 MG TABLET PO SCH (09:02)
[2020-12-29] MEDS: FUROSEMIDE 20 MG TAB PO SCH (09:02)
[2020-12-29] MEDS: MAGNESIUM OXIDE 400 MG TAB PO SCH ×2 (09:02→19:24)
[2020-12-29] MEDS: METOPROLOL TARTRATE 12.5 MG TAB PO SCH ×2 (09:02→19:24)
[2020-12-29] MEDS: lisinopriL 20 MG TAB PO SCH (09:02)
[2020-12-29] MEDS: ZINC SULFATE 220 MG CAP PO SCH (09:03)
[2020-12-29] MEDS: PANTOPRAZOLE 40 MG/10 ML VIAL IVP SCH ×2 (09:12→20:05)
[2020-12-29] MEDS: DEXAMETHASONE SOD PHOSPHATE 10 MG/ML 1 ML VIAL IV SCH (09:12)
--- NOTE | 2020-12-29 10:21 | P.PN ---
Subjective Progress Note Date: 12/29/20 12/29/2020, the patient is being seen for a follow-up. The patient is a case of quite debilitated 70-year-old male patient who is currently battling COVID-19 related pneumonia with secondary respiratory failure. The patient is being seen for follow-up today. Note that, the patient was doing well on a high flow oxygen with a nonrebreather facemask. Subsequently, his condition decompensated in the evening yesterday and the patient became more restless and agitated. I started him on Precedex drip for agitation or restlessness and synchrony with the BiPAP mask and was started at a pressure of 12/8 cm of water and current FiO2 is at 70%. Blood gas showed a pH of 7.44 with a pCO2 of 41 and pO2 of 98 and based on the current blood gases, the FiO2 is down to 60%. Chest x-ray still showing bilateral multifocal reticular and the reticular nodular opacities consistent with COVID-19 related pneumonia. He is quite synchronous and is generating adequate tidal volumes for now. No significant tachypnea pedis resting comfortably while being on Precedex at 1.2 mcg/kg per minute. The patient today has a white cell count of 4.8 with hemoglobin of 10.6. BUN is at 45 with a creatinine of 1.03. The liver function test shows a AST of 69, ALT of 40. Glucose is 151. His d-dimer from yesterday was 31.6. He remains on anticoagulation and the patient is currently receiving Eliquis for long-term anticoagulants and the patient is currently at a dose of 2.5 mg by mouth twice a day. Note that his LDH was also dropping in numbers and the patient will have a follow-up LDH level done today and the results are still pending for now. He is quite rested Objective - Vital Signs Vital signs: Vital Signs Temp 97.4 F L 12/29/20 08:00 Pulse 63 12/29/20 10:00 Resp 22 12/29/20 10:00 BP 157/91 12/29/20 10:00 Pulse Ox 98 12/29/20 10:00 Intake & Output 12/28/20 12/29/20 12/29/20 18:59 06:59 18:59 Intake Total 834.058 554.967 60 Output Total 380 455 160 Balance 454.058 99.967 -100 Weight 96.162 kg Intake: IV 100 60 Sodium Chloride 0.9% 1, 100 60 000 ml @ 20 mls/hr IV . Q24H [facility] Rx#:[id number] Intake, IV Titration 274.058 454.967 Amount Dexmedetomidine/0.9% NaCl 34.058 314.967 (Pmx) 400 mcg In Empty Bag 1 bag @ 0.2 MCG/KG/HR 4.275 mls/hr IV .[id number] [facility] Rx#:[id number] Sodium Chloride 0.9% 1, 240 140 000 ml @ 20 mls/hr IV . Q24H [facility] Rx#:[id number] Oral 560 Output: Urine 380 455 160 Other: Voiding Method Indwelling Catheter Indwelling Catheter Indwelling Catheter - Exam Gen. appearance the patient is lethargic yet, comfortable, no agitation, breathing is nonlabored, sedated with Precedex infusion and the patient is also on BiPAP at a pressure of 12/8 cm of water with an FiO2 has been drop down to 60%. Head exam was generally normal. There was no scleral icterus or corneal arcus. Mucous membranes were moist. Neck was supple and without jugular venous distension, thyromegaly, or carotid bruits. Carotids were easily palpable bilaterally. There was no adenopathy. Lungs sounds are diminished and the patient has crackles throughout the lung lacy bilaterally in the mid and lower lung lacy Heart sounds are regular in the patient's systolic ejection murmur grade 4/6 heard throughout the precordium Abdominal exam revealed normal bowel sounds. The abdomen was soft, non-tender, and without masses, organomegaly, or appreciable enlargement of the abdominal aorta. Scar of a previous abdominal surgery over the anterior abdominal wall Examination of the extremities revealed easily palpable radial, femoral and peda l pulses. There was no cyanosis, clubbing or edema. Scar of previous surgery over the right knee Examination of the skin revealed no evidence of significant rashes, suspicious appearing nevi or other concerning lesions. Neurologic the patient is lethargic. He is awake and arousable. He is followi ng simple commands. Moving all 4 extremities. No facial asymmetry. He is aware of himself and place. No agitation. Pupils are equal and reactive to light. No focal neurological deficits. - Labs CBC & Chem 7: 12/29/20 03:21 12/29/20 03:21 Labs: Abnormal Lab Results - Last 24 Hours (Table) 12/28/20 12/29/20 12/29/20 Range/Units 05:19 03:21 03:21 RBC 3.33 L (4.30-5.90) m/uL Hgb 10.6 L (13.0-17.5) gm/dL Hct 34.0 L (39.0-53.0) % MCV 102.3 H (80.0-100.0) fL Lymphocytes # 0.2 L (1.0-4.8) k/uL Potassium 5.5 H (3.5-5.1) mmol/L Chloride 109 H (98-107) mmol/L BUN 45 H (9-20) mg/dL Glucose 151 H (74-99) mg/dL Ferritin 487.0 H (22.0-322.0) ng/mL AST 69 H (17-59) U/L Alkaline Phosphatase 138 H (38-126) U/L Total Protein 6.2 L (6.3-8.2) g/dL Albumin 2.8 L (3.5-5.0) g/dL Microbiology - Last 24 Hours (Table) 12/27/20 11:20 Urine Culture - Final Urine,Catheterized Assessment and Plan Plan: 1 acute COVID-19 related pneumonia, and the symptoms have been going on for at least a week. The exact symptom onset timing is not known to me at this point. Nevertheless the patient presents with a positive PCR in the same time the patient has acute hypoxic respiratory failure in addition to constitutional symptoms and some mild transaminitis. He seems to be also dehydrated. He had diminished oral intake. He had altered mentation. He also had increased weakness and falls. Chest x-ray is consistent with COVID-19 related pneumonia. Note that the patient is a vaccinated individual. The patient was initially admitted to the medical floor and subsequently required high flow oxygen and his current in intensive care unit on a BiPAP at a pressure of 12/8 cm of water and FiO2 of 70%. He is also on Precedex infusion to control his agitation and synchrony with the BiPAP machine. LDH level is elevated. Follow-up inflammatory markers is pending from today. Chest x-ray findings are still showing diffuse bilateral pulmonary infiltrates consistent with COVID-19 related pneumonia. He is tolerating BiPAP. Saturation above 90% at this point in time. 2 acute hypoxic respiratory failure currently on BiPAP therapy 3 generalized weakness and consultation symptoms secondary to above, consider underlying dehydration, treated and the patient is currently on IV fluids with 0.9 at the rate of 20 mL an hour 4 altered mental status secondary to above, and the patient has significant agitation and the patient is currently on Precedex 5 history of falls 6 previous history of prostate cancer treated with radiation therapy 7 history of traumatic brain injury in 2017 8 Peripheral vascular disease 9 hypertension 10 hyperlipidemia 11 transaminitis secondary to COVID-19 infection 12 limited troponin leak without any EKG changes 13 atrial fibrillation, rate is controlled, and the patient remains on Eliquis for now at a dose of 2.5 mg by mouth twice a day. The dose will be modified to 5 mg by mouth twice a day. Plan Continue BiPAP for respiratory support Continue Decadron 6 mg IV every 24 hours Continue Baricitinib per protocol Eliquis 5 mg by mouth twice a day IV fluids at 75 mL an hour Echocardiogram showed a preserved LV function with an ejection fraction of 6065% with mild aortic stenosis BiPAP therapy for respiratory support at a pressure of 12/8 FiO2 has been weaned down to 60% Continue Precedex for sedation and synchrony with the BiPAP Continue the rest of the supportive care The plan is to keep her on a BiPAP throughout the day today and try him again on high flow oxygen as of tomorrow No signs of any bacterial infection. His pro calcitonin level done earlier was 0.3 Critically care evaluation, condition is critical, evaluation was done and more than 30 minutes. Time with Patient: Greater than 30
[2020-12-29] MEDS: SODIUM CHLORIDE 0.9% 1,000 ML IV SCH (11:59)
--- NOTE | 2020-12-29 14:20 | P.PN ---
Subjective Progress Note Date: 12/29/20 patient was seen in the ICU today, he was placed on BiPAP due to worsening hypoxia initially failure, Precedex was also started last name due to worsening agitation and noncompliance with positive pressure ventilation. Chest x-ray is unchanged and is still showing bilateral multifocal opacities. Inflammatory markers of improving. He is on Eliquis long-term, hemoglobin has been stable with no signs of bleeding. Objective - Vital Signs Vital signs: Vital Signs Temp 99.3 F 12/29/20 12:00 Pulse 62 12/29/20 14:00 Resp 24 12/29/20 14:00 BP 114/83 12/29/20 14:00 Pulse Ox 96 12/29/20 14:00 Intake & Output 12/28/20 12/29/20 12/29/20 18:59 06:59 18:59 Intake Total 834.058 554.967 340 Output Total 380 455 345 Balance 454.058 99.967 -5 Weight 96.162 kg Intake: IV 100 140 Sodium Chloride 0.9% 1, 100 140 000 ml @ 20 mls/hr IV . Q24H [facility] Rx#:[id number] Intake, IV Titration 274.058 454.967 200 Amount Dexmedetomidine/0.9% NaCl 34.058 314.967 200 (Pmx) 400 mcg In Empty Bag 1 bag @ 0.2 MCG/KG/HR 4.275 mls/hr IV .[id number] [facility] Rx#:[id number] Sodium Chloride 0.9% 1, 240 140 000 ml @ 20 mls/hr IV . Q24H [facility] Rx#:[id number] Oral 560 Output: Urine 380 455 345 Other: Voiding Method Indwelling Catheter Indwelling Catheter Indwelling Catheter - Exam General: Ill-appearing, on BiPAP, he is awake and alert but confused Derm: warm, dry Head: atraumatic, normocephalic Eyes: EOMI, anicteric sclera Mouth: Dry mucous membranes, oropharynx clear Cardiovascular: Irregularly irregular, normal rate, no murmur distal pulses are equal and palpable Lungs: Coarse breath sounds bilateral, no wheezing no accessory muscle use Abdominal: soft, nontender to palpation, no guarding, no appreciable organomegaly Ext: no gross muscle atrophy, no edema, no contractures Neuro: CN II-XI grossly intact, no focal neuro deficits - Labs CBC & Chem 7: 12/29/20 03:21 10 03:21 Labs: Abnormal Lab Results - Last 24 Hours (Table) 12/28/20 12/29/20 12/29/20 Range/Units 05:19 03:21 03:21 RBC 3.33 L (4.30-5.90) m/uL Hgb 10.6 L (13.0-17.5) gm/dL Hct 34.0 L (39.0-53.0) % MCV 102.3 H (80.0-100.0) fL Lymphocytes # 0.2 L (1.0-4.8) k/uL Potassium 5.5 H (3.5-5.1) mmol/L Chloride 109 H (98-107) mmol/L BUN 45 H (9-20) mg/dL Glucose 151 H (74-99) mg/dL Ferritin 487.0 H (22.0-322.0) ng/mL AST 69 H (17-59) U/L Alkaline Phosphatase 138 H (38-126) U/L Total Protein 6.2 L (6.3-8.2) g/dL Albumin 2.8 L (3.5-5.0) g/dL Microbiology - Last 24 Hours (Table) 12/27/20 11:20 Urine Culture - Final Urine,Catheterized Assessment and Plan Plan: Acute hypoxic respiratory failure worsening oxygen requirement over the last 48 hours, he has been on BiPAP since yesterday, appears to be more compliant with ventilation since Precedex was started COVID-19 pneumonitis -Worsened over the last 24-48 hours -Continue with dexamethasone day #4, Barcitinib #3 -Zinc, vitamin C, vitamin D -Appreciate further recommendations per pulmonology -Continue monitoring inflammatory markers, pro-calcitonin, CRP, d-dimer Hypertension -Follow blood pressures -Continue his current medication regimen Dyslipidemia - lipitor Paroxysmal atrial fibrillation with rapid ventricular response -Continue with Eliquis increased to 5 twice daily - metoprolol -hemoglobin has been stable and improving
[2020-12-29] MEDS: ESCITALOPRAM 10 MG TAB PO SCH (17:06)
[2020-12-29 19:07] LABS: Glucose,Whole Blood 122 mg/dL (75-99)
[2020-12-29] MEDS: CALCIUM CARB-VIT D 500 MG-5 MCG TAB PO SCH (19:24)
[2020-12-29] MEDS: ATORVASTATIN 80 MG TAB PO SCH (19:24)
[2020-12-29] MEDS: QUEtiapine 50 MG TAB PO SCH (19:24)
[2020-12-29] MEDS ORDERED: MORPHINE SULFATE 2 MG/ML SYRINGE IVP STA (20:31)
[2020-12-29] MEDS ORDERED: LORazepam 2 MG/ML INJ IV STA (20:31)
[2020-12-30] MEDS: MORPHINE SULFATE 2 MG/ML SYRINGE IV PRN ×4 (00:03→08:22)
[2020-12-30 00:07] LABS: Glucose,Whole Blood 142 mg/dL (75-99)
[2020-12-30] MEDS: LORazepam 2 MG/ML INJ IV PRN ×4 (02:04→08:23)
[2020-12-30] MEDS: DEXMEDETOMIDINE/0.9% NACL(PMX) 400 MCG in EMPTY BAG 1 BAG IV SCH ×3 (02:04→08:22)
[2020-12-30 04:14] LABS: HGB 11.4 gm/dL (13.0-17.5); MCH 32.9 pg (25.0-35.0); MCHC 31.7 g/dL (31.0-37.0); MCV 103.9 fL (80.0-100.0); RBC 3.46 m/uL (4.30-5.90); WBC 4.4 k/uL (3.8-10.6)
[2020-12-30 04:15] LABS: Basophils % (A) 0 %; Eosinophils % (A) 0 %; Hypochromasia Slight; Lymphocytes # (A) 0.2 k/uL (1.0-4.8); Lymphocytes % (A) 5 %; Macrocytosis Slight; Mean Platelet Volume 8.5; Monocytes # (A) 0.3 k/uL (0-1.0); Monocytes % (A) 6 %; Neutrophils # (A) 3.8 k/uL (1.3-7.7); Neutrophils % (A) 86 %; Platelet Count 222 k/uL (150-450); RDW 14.7 % (11.5-15.5)
[2020-12-30 04:22] LABS: Calcium 8.7 mg/dL (8.4-10.2); Total Protein 6.6 g/dL (6.3-8.2)
[2020-12-30 04:50] LABS: Potassium 5.9 mmol/L (3.5-5.1)
[2020-12-30] MEDS: BICALUTAMIDE 50 MG TAB PO SCH (07:39)
[2020-12-30] MEDS: APIXABAN 5 MG TAB PO SCH (07:39)
[2020-12-30] MEDS: ASPIRIN 81 MG PO SCH (07:39)
[2020-12-30] MEDS: CLOPIDOGREL 75 MG TAB PO SCH (07:39)
[2020-12-30] MEDS: CYANOCOBALAMIN 500 MCG TAB PO SCH (07:39)
[2020-12-30] MEDS: METOPROLOL TARTRATE 12.5 MG TAB PO SCH (07:40)
[2020-12-30] MEDS: ASCORBIC ACID 500 MG TAB PO SCH (07:40)
[2020-12-30] MEDS: FOLIC ACID 1 MG TAB PO SCH (07:40)
[2020-12-30] MEDS: lisinopriL 20 MG TAB PO SCH (07:40)
[2020-12-30] MEDS: CHOLECALCIFEROL 25 MCG (1000 IU) TABLET PO SCH (07:40)
[2020-12-30] MEDS: FUROSEMIDE 20 MG TAB PO SCH (07:40)
[2020-12-30] MEDS: BARICITINIB 2 MG TABLET PO SCH (07:40)
[2020-12-30] MEDS: ZINC SULFATE 220 MG CAP PO SCH (07:40)
[2020-12-30] MEDS: MAGNESIUM OXIDE 400 MG TAB PO SCH (07:40)
--- NOTE | 2020-12-30 08:06 | XR ---
EXAMINATION TYPE: XR chest 1V portable DATE OF EXAM: 12/30/2020 Comparison: 12/29/2020 Clinical History: 70-year-old male covid BiPAP Findings: Heart mildly enlarged. Diffuse interstitial opacities and patchy confluent bilateral airspace opaciti es, right greater than left. Aeration is improving. Old healed left-sided rib fracture deformity. No pleural effusion. Impression: Continued bilateral interstitial and patchy and confluent airspace disease, right greater than left. Aeration is improving compared to prior exam.
[2020-12-30] MEDS: PANTOPRAZOLE 40 MG/10 ML VIAL IVP SCH (08:23)
[2020-12-30] MEDS: DEXAMETHASONE SOD PHOSPHATE 10 MG/ML 1 ML VIAL IV SCH (08:23)
[2020-12-30 08:47] VITALS: TEMP 100.6
[2020-12-30] MEDS ORDERED: SODIUM CHLORIDE 0.9% 1,000 ML IV ONE (09:33)
[2020-12-30] MEDS ORDERED: SODIUM BICARB 8.4% 50 ML SYR (1 MEQ/ML) IV STA (09:42)
[2020-12-30] MEDS ORDERED: NOREPINEPHRINE 8 MG in SODIUM CHLORIDE 0.9% 250 ML IV SCH (09:45)
[2020-12-30] MEDS ORDERED: AMIODARONE 50 MG/ML 3 ML VIAL IV ONE (10:00)
[2020-12-30] MEDS ORDERED: EPINEPHrine 10 ML SYRINGE (0.1 MG/ML) ONE (10:00)
[2020-12-30] MEDS ORDERED: SODIUM BICARB 8.4% 50 ML SYR (1 MEQ/ML) ONE (10:00)
[2020-12-30] MEDS ORDERED: ATROPINE SULFATE 0.1 MG/ML 10ML SYRINGE ONE (10:00)
[2020-12-30] MEDS ORDERED: CALCIUM CHLORIDE 100 MG/ML 10 ML SYRINGE ONE (10:00)
[2020-12-30] MEDS ORDERED: propofoL 100 ML IV ONE (10:02)
[2020-12-30] MEDS ORDERED: AMIODARONE 360 MG in DEXTROSE 5% IN WATER 200 ML IV ONE ×2 (10:18)
[2020-12-30 10:27] LABS: Glucose,Whole Blood 142 mg/dL (75-99)
[2020-12-30 10:33] LABS: ABG Base Excess -16.6 mmol/L; ABG HCO3 12 mmol/L (21-25); ABG PCO2 34 mmHg (35-45); ABG TCO2 13 mmol/L (19-24)
[2020-12-30 10:34] LABS: ABG PH 7.16 (7.35-7.45); ABG PO2 25 mmHg (83-108); Allen Test Performed? no
[2020-12-30 10:47] VITALS: BP 139/85; PULSE 59; RESP 30
--- NOTE | 2020-12-30 10:57 | P.PN ---
Subjective Progress Note Date: 12/30/20 Pt is on BIPAP, sedated on precedex. Maintaining saturation with 12/8, FiO2 55% settings. Objective - Vital Signs Vital signs: Vital Signs Temp 100.6 F H 12/30/20 08:00 Pulse 59 L 12/30/20 09:00 Resp 30 H 12/30/20 09:00 BP 139/85 12/30/20 09:00 Pulse Ox 93 L 12/30/20 09:00 Intake & Output 12/29/20 12/30/20 12/30/20 18:59 06:59 18:59 Intake Total 552.967 579.222 227.768 Output Total 575 415 165 Balance -22.033 164.222 62.768 Weight 95.844 kg Intake: IV 240 240 135 Sodium Chloride 0.9% 1, 240 240 135 000 ml @ 75 mls/hr IV . [id number] SARAH Rx#:[id number] Intake, IV Titration 312.967 339.222 92.768 Amount Dexmedetomidine/0.9% NaCl 312.967 339.222 92.768 (Pmx) 400 mcg In Empty Bag 1 bag @ 0.2 MCG/KG/HR 4.275 mls/hr IV .[id number] SARAH Rx#:[id number] Output: Urine 575 415 165 Other: Voiding Method Indwelling Catheter Indwelling Catheter Indwelling Catheter - Exam Gen: Sleepy, sedated HEENT: normocephalic, atraumatic, moist mucous membranes Resp: BiPAP 12/8, FiO2 55% CVS: good distal perfusion x 4, GI: soft, NTTP, ND : no SPT, no CVAT, haney catheter is present MSK: no pitting edema, no clubbing - Labs CBC & Chem 7: 12/30/20 03:21 12/30/20 03:26 Labs: Abnormal Lab Results - Last 24 Hours (Table) 12/29/20 12/30/20 12/30/20 Range/Units 19:04 00:06 03:21 RBC 3.46 L (4.30-5.90) m/uL Hgb 11.4 L (13.0-17.5) gm/dL Hct 36.0 L (39.0-53.0) % MCV 103.9 H (80.0-100.0) fL Lymphocytes # 0.2 L (1.0-4.8) k/uL ABG pH (7.35-7.45) ABG pCO2 (35-45) mmHg ABG pO2 (83-108) mmHg ABG HCO3 (21-25) mmol/L ABG Total CO2 (19-24) mmol/L ABG O2 Saturation (94-97) % Potassium (3.5-5.1) mmol/L Chloride (98-107) mmol/L Carbon Dioxide (22-30) mmol/L BUN (9-20) mg/dL Glucose (74-99) mg/dL POC Glucose (mg/dL) 122 H 142 H (75-99) mg/dL AST (17-59) U/L Alkaline Phosphatase (38-126) U/L Albumin (3.5-5.0) g/dL 12/30/20 12/30/20 12/30/20 Range/Units 03:26 10:18 10:31 RBC (4.30-5.90) m/uL Hgb (13.0-17.5) gm/dL Hct (39.0-53.0) % MCV (80.0-100.0) fL Lymphocytes # (1.0-4.8) k/uL ABG pH 7.16 L* (7.35-7.45) ABG pCO2 34 L (35-45) mmHg ABG pO2 25 L* (83-108) mmHg ABG HCO3 12 L (21-25) mmol/L ABG Total CO2 13 L (19-24) mmol/L ABG O2 Saturation 28.0 L (94-97) % Potassium 5.9 H (3.5-5.1) mmol/L Chloride 114 H (98-107) mmol/L Carbon Dioxide 21 L (22-30) mmol/L BUN 49 H (9-20) mg/dL Glucose 138 H (74-99) mg/dL POC Glucose (mg/dL) 142 H (75-99) mg/dL AST 173 H (17-59) U/L Alkaline Phosphatase 154 H (38-126) U/L Albumin 3.0 L (3.5-5.0) g/dL Assessment and Plan Assessment: Acute hypoxic respiratory failure ARDS secondary to COVID-19 pneumonitis -Continue with dexamethasone day #5, Barcitinib #4 -Zinc, vitamin C, vitamin D -Appreciate further recommendations per pulmonology -Continue monitoring inflammatory markers, pro-calcitonin, CRP, d-dimer -precedex gtt to tolerate BIPAP -oxygen PRN Hypertension -Follow blood pressures -Continue his current medication regimen Dyslipidemia - lipitor Paroxysmal atrial fibrillation with rapid ventricular response -Continue with Eliquis increased to 5 twice daily - metoprolol -hemoglobin has been stable and improving
--- NOTE | 2020-12-30 12:03 | P.PN ---
Subjective Progress Note Date: 12/30/20 Principal diagnosis: Acute hypoxic respiratory failure secondary to COVID-19 pneumonia 12/29/2020, the patient is being seen for a follow-up. The patient is a case of quite debilitated 70-year-old male patient who is currently battling COVID-19 related pneumonia with secondary respiratory failure. The patient is being seen for follow-up today. Note that, the patient was doing well on a high flow oxygen with a nonrebreather facemask. Subsequently, his condition decompensated in the evening yesterday and the patient became more restless and agitated. I started him on Precedex drip for agitation or restlessness and synchrony with the BiPAP mask and was started at a pressure of 12/8 cm of water and current FiO2 is at 70%. Blood gas showed a pH of 7.44 with a pCO2 of 41 and pO2 of 98 and based on the current blood gases, the FiO2 is down to 60%. Chest x-ray still showing bilateral multifocal reticular and the reticular nodular opacities consistent with COVID-19 related pneumonia. He is quite synchronous and is generating adequate tidal volumes for now. No significant tachypnea pedis resting comfortably while being on Precedex at 1.2 mcg/kg per minute. The p atient today has a white cell count of 4.8 with hemoglobin of 10.6. BUN is at 45 with a creatinine of 1.03. The liver function test shows a AST of 69, ALT of 40. Glucose is 151. His d-dimer from yesterday was 31.6. He remains on anticoagulation and the patient is currently receiving Eliquis for long-term anticoagulants and the patient is currently at a dose of 2.5 mg by mouth twice a day. Note that his LDH was also dropping in numbers and the patient will have a follow-up LDH level done today and the results are still pending for now. He is quite rested Patient was reevaluated today on 12/30/2020. Upon the initial evaluation of this patient, he clearly noted to be in severe respiratory distress, he was already on BiPAP, 12/8, and 55% FiO2. I examined the patient and he was basically unresponsive to any stimuli. His IPAP was increased to 16 and EPAP remained at 8 FiO2 increased to 100%, patient was using his accessory muscles, and he had significant increase of work of breathing. Hence I recommended immediate intubation of the patient, he was on Precedex, and not requiring any pressors, not requiring any other drips. He was given a fluid bolus, intubated uneventfully, and he was placed on assist control rate of 28, tidal volume of 400, FiO2 of 100%, and PEEP of 10. Within an hour after the patient was intubated, patient went on to deteriorate further, he went into pulseless electrical activity. Came back to the room, did CPR on the patient for over half an hour. Patient required multiple rounds of epinephrine multiple amps of sodium bicarb required 1 defibrillation, he required amiodarone bolus, he continued to do poorly, and he kept going in and out of pulseless electrical activity. During the code I was able to establish a central access and arterial line, but patient continued to do poorly. Updated his on his condition, and explained to her that he is not doing well after over half an hour of CPR. agreed to stop further CPR, and proceed with comfort care measures. And this was done according to the 's wishes. Patient was pronounced at 10:36 AM. Objective - Vital Signs Vital signs: Vital Signs Temp 100.6 F H 12/30/20 08:00 Pulse 59 L 12/30/20 09:00 Resp 30 H 12/30/20 09:00 BP 139/85 12/30/20 09:00 Pulse Ox 93 L 12/30/20 09:00 Intake & Output 12/29/20 12/30/20 12/30/20 18:59 06:59 18:59 Intake Total 552.967 579.222 227.768 Output Total 575 415 165 Balance -22.033 164.222 62.768 Weight 95.844 kg Intake: IV 240 240 135 Sodium Chloride 0.9% 1, 240 240 135 000 ml @ 75 mls/hr IV . [id number] SARAH Rx#:[id number] Intake, IV Titration 312.967 339.222 92.768 Amount Dexmedetomidine/0.9% NaCl 312.967 339.222 92.768 (Pmx) 400 mcg In Empty Bag 1 bag @ 0.2 MCG/KG/HR 4.275 mls/hr IV .[id number] SARAH Rx#:[id number] Output: Urine 575 415 165 Other: Voiding Method Indwelling Catheter Indwelling Catheter Indwelling Catheter - Exam Physical Exam: Revealed a 70-year-old white male unresponsive to any stimuli, on BiPAP, O2 saturation in the high 70s and low 80s. Noted to be in moderate respiratory distress, using his accessory muscles, HEENT:[Neck is supple.] [No neck masses.] [No thyromegaly.] [No JVD.] BiPAP was noted in place. Chest: [Medical chest expansion, crackles at the bases, rhonchi bilaterally. Cardiac Exam: [Normal S1 and S2, no S3 gallop, no murmur.] Abdomen: [Soft, nontender, no megaly, no rebound, no guarding, normal bowel sounds.] Extremities: [No clubbing, no edema, no cyanosis.] Neurological Exam: Patient is unresponsive to any stimuli. obtunded Psychiatric: Could not be assessed. - Labs CBC & Chem 7: 12/30/20 03:21 12/30/20 03:26 Labs: Abnormal Lab Results - Last 24 Hours (Table) 12/29/20 12/30/20 12/30/20 Range/Units 19:04 00:06 03:21 RBC 3.46 L (4.30-5.90) m/uL Hgb 11.4 L (13.0-17.5) gm/dL Hct 36.0 L (39.0-53.0) % MCV 103.9 H (80.0-100.0) fL Lymphocytes # 0.2 L (1.0-4.8) k/uL ABG pH (7.35-7.45) ABG pCO2 (35-45) mmHg ABG pO2 (83-108) mmHg ABG HCO3 (21-25) mmol/L ABG Total CO2 (19-24) mmol/L ABG O2 Saturation (94-97) % Potassium (3.5-5.1) mmol/L Chloride (98-107) mmol/L Carbon Dioxide (22-30) mmol/L BUN (9-20) mg/dL Glucose (74-99) mg/dL POC Glucose (mg/dL) 122 H 142 H (75-99) mg/dL AST (17-59) U/L Alkaline Phosphatase (38-126) U/L Albumin (3.5-5.0) g/dL 12/30/20 12/30/20 12/30/20 Range/Units 03:26 10:18 10:31 RBC (4.30-5.90) m/uL Hgb (13.0-17.5) gm/dL Hct (39.0-53.0) % MCV (80.0-100.0) fL Lymphocytes # (1.0-4.8) k/uL ABG pH 7.16 L* (7.35-7.45) ABG pCO2 34 L (35-45) mmHg ABG pO2 25 L* (83-108) mmHg ABG HCO3 12 L (21-25) mmol/L ABG Total CO2 13 L (19-24) mmol/L ABG O2 Saturation 28.0 L (94-97) % Potassium 5.9 H (3.5-5.1) mmol/L Chloride 114 H (98-107) mmol/L Carbon Dioxide 21 L (22-30) mmol/L BUN 49 H (9-20) mg/dL Glucose 138 H (74-99) mg/dL POC Glucose (mg/dL) 142 H (75-99) mg/dL AST 173 H (17-59) U/L Alkaline Phosphatase 154 H (38-126) U/L Albumin 3.0 L (3.5-5.0) g/dL Assessment and Plan Assessment: Impression: Acute cardiopulmonary arrest secondary to COVID-19 pneumonia and profound hypoxia and hypercapnia. Acute hypoxic and hypercapnic respiratory failure secondary to COVID-19 pneumonia Pulseless electrical activity requiring CPR as per ACLS protocol. History of prostate cancer. History of multiple falls. History of generalized weakness. History of peripheral vessel occlusive disease. Elevated liver enzymes secondary to COVID-19 infection Paroxysmal atrial fibrillation on anticoagulation therapy. Recommendation: Patient was intubated, placed on mechanical ventilation, and about an hour later patient went into pulseless electrical activity requiring CPR. Please refer to the CPR sheet. Patient received multiple attempts of bicarb, multiple rounds of epinephrine, Did not respond well to CPR, was notified, wished basically comfort care measures and the patient was pronounced at 10:36 AM. Critical care time is over 45 minutes not including the time spent on procedures including arterial line and central line during the code Time with Patient: Greater than 30
--- NOTE | 2020-12-30 12:30 | OP ---
OPERATIVE REPORT OPERATIVE REPORT: Placement of right brachial arterial line. PREOPERATIVE DIAGNOSIS: Acute cardiac arrest. POSTOPERATIVE DIAGNOSIS: Acute cardiac arrest. ANESTHESIA USED: None deployed. PROCEDURE DESCRIPTION: The right brachial region was prepared in a sterile fashion. Drapes were applied. The right brachial artery was localized by Doppler, then it was cannulated easily. A guidewire was placed. A Cook's catheter was inserted over the guidewire. Good blood flow was noted. Waveform was noted, and no evidence of any immediate complications. Line was secured using 3.0 silk sutures. MMODL / IJN: [id number] /
--- NOTE | 2020-12-30 12:30 | OP ---
OPERATIVE REPORT OPERATIVE REPORT: Placement of a right femoral triple-lumen catheter. PREOPERATIVE DIAGNOSIS: Acute cardiopulmonary arrest requiring CPR; patient had pulseless electrical activity requiring CPR and resuscitation. POSTOPERATIVE DIAGNOSIS: Acute cardiopulmonary arrest requiring CPR; patient had pulseless electrical activity requiring CPR and resuscitation. ANESTHESIA USED: None deployed. PROCEDURE DESCRIPTION: The right groin was prepared in a sterile fashion. Drapes were applied. The right femoral vein was cannulated easily. A guidewire was placed, and the area around the guidewire was dilated. Then a triple-lumen catheter was inserted over the guidewire, and the guidewire was removed. Good blood flow was noted in the 3 different ports. Line was secured using 3.0 silk sutures. No evidence of any immediate complications. MMODL / IJN: [id number] /
--- NOTE | 2020-12-30 13:09 | P.DS ---
Providers Date of admission: 12/26/20 06:23 Expected date of discharge: 12/30/20 Attending physician: Artis Coombs MD Consults: 12/26/20 08:06 Consult Physician Routine Consulting Provider: Angelo Syed Consult Reason/Comments: RUL Mass? Pulmonary fibrosis; in 2019 had mild perihilar pneumonitis Do you want consulting provider notified?: Yes Primary care physician: Robert Lazaro MD Hospital Course: Pt today at 1036 after multiple rounds of CPR for total of 30 minutes. Please see code sheet for further details. from complications of COVID 19 pneumonia. Smoking likely contributed to . Plan - Discharge Summary Discharge Rx Participant: Yes New Discharge Prescriptions: No Action Aspirin 81 mg PO DAILY@0800 Escitalopram [Lexapro] 30 mg PO DAILY@1700 Metoprolol Tartrate [Lopressor] 12.5 mg PO BID@0800,1999 Furosemide [Lasix] 20 mg PO DAILY@0800 Folic Acid 1 mg PO DAILY@0800 QUEtiapine [SEROquel] 50 mg PO HS@1999 Bicalutamide [Casodex] 50 mg PO DAILY@0800 amantadine HCL [Amantadine] 100 mg PO BID@0800,1999 Ramipril 10 mg PO DAILY@0800 Magnesium Oxide [Magox 400] 400 mg PO BID@08,1999 Apixaban [Eliquis] 2.5 mg PO BID@08,1999 Cyanocobalamin (Vitamin B-12) [Vitamin B12] 5,000 mcg PO DAILY@0800 Clopidogrel Bisulfate [Plavix] 75 mg PO DAILY@0800 Calcium Carbonate/Vitamin D3 [Calcium 600 mg-D3 20 mcg (800 unit)] 1 tab PO HS@1999 Atorvastatin [Lipitor] 80 mg PO HS@1999 Discharge Medication List Aspirin 81 mg PO DAILY@0800 11/23/14 [History] Bicalutamide [Casodex] 50 mg PO DAILY@0800 04/05/20 [History] Escitalopram [Lexapro] 30 mg PO DAILY@1700 04/05/20 [History] Folic Acid 1 mg PO DAILY@0800 04/05/20 [History] Furosemide [Lasix] 20 mg PO DAILY@0800 04/05/20 [History] Magnesium Oxide [Magox 400] 400 mg PO BID@0800,199904/05/20 [History] Metoprolol Tartrate [Lopressor] 12.5 mg PO BID@799,199904/05/20 [History] QUEtiapine [SEROquel] 50 mg PO HS@199904/05/20 [History] Ramipril 10 mg PO DAILY@79904/05/20 [History] amantadine HCL [Amantadine] 100 mg PO BID@799,199904/05/20 [History] Apixaban [Eliquis] 2.5 mg PO BID@799,199912/26/20 [History] Atorvastatin [Lipitor] 80 mg PO HS@199912/26/20 [History] Calcium Carbonate/Vitamin D3 [Calcium 600 mg-D3 20 mcg (800 unit)] 1 tab PO HS@199912/26/20 [History] Clopidogrel Bisulfate [Plavix] 75 mg PO DAILY@79912/26/20 [History] Cyanocobalamin (Vitamin B-12) [Vitamin B12] 5,000 mcg PO DAILY@79912/26/20 [History] Follow up Appointment(s)/Referral(s): Robert Lazaro MD [Primary Care Provider] - 1-2 days
[2020-12-30] MEDS ORDERED: LORazepam 2 MG/ML INJ ONE (13:42)
[2020-12-30] MEDS ORDERED: AMIODARONE 450 MG in DEXTROSE 5% IN WATER 250 ML IV SCH ×2 (16:30)
== END 2020-12-30 10:30 | disposition expired | DRG 208 ==
LOC: EC 02:57 → 4SSUR 06:23 → 3SCARD 08:00 → 2SICU 12-27 10:37
PROVIDERS: ADMIT Internal Medicine; ATTEND Internal Medicine
PROC: 5A0935A Assistance with Respiratory Ventilation, Less than 24 Consecutive Hours, High Flow/Velocity Cannula (ICD-10-PCS; 2020-12-26)
PROC: XW0DXM6 Introduction of Baricitinib into Mouth and Pharynx, External Approach, New Technology Group 6 (ICD-10-PCS; principal; 2020-12-27)
PROC: 5A09357 Assistance with Respiratory Ventilation, Less than 24 Consecutive Hours, Continuous Positive Airway Pressure (ICD-10-PCS; 2020-12-29)
PROC: 04HK33Z Insertion of Infusion Device into Right Femoral Artery, Percutaneous Approach (ICD-10-PCS; 2020-12-30)
PROC: 03H733Z Insertion of Infusion Device into Right Brachial Artery, Percutaneous Approach (ICD-10-PCS; 2020-12-30)
PROC: 3E033XZ Introduction of Vasopressor into Peripheral Vein, Percutaneous Approach (ICD-10-PCS; 2020-12-30)
PROC: 5A02115 Assistance with Cardiac Output using Pulsatile Compression, Intermittent (ICD-10-PCS; 2020-12-30)
PROC: 5A1935Z Respiratory Ventilation, Less than 24 Consecutive Hours (ICD-10-PCS; 2020-12-30)
PROC: 0BH17EZ Insertion of Endotracheal Airway into Trachea, Via Natural or Artificial Opening (ICD-10-PCS; 2020-12-30)
DX: U07.1 COVID-19 (principal); J12.82 Pneumonia due to coronavirus disease 2019; J80 Acute respiratory distress syndrome; E87.2 Acidosis; I46.9 Cardiac arrest, cause unspecified; M48.061 Spinal stenosis, lumbar region without neurogenic claudication; F32.9 Major depressive disorder, single episode, unspecified; Z51.5 Encounter for palliative care; J84.10 Pulmonary fibrosis, unspecified; I48.0 Paroxysmal atrial fibrillation; Z96.641 Presence of right artificial hip joint; F17.200 Nicotine dependence, unspecified, uncomplicated; D72.810 Lymphocytopenia; E78.5 Hyperlipidemia, unspecified; I10 Essential (primary) hypertension; I73.9 Peripheral vascular disease, unspecified; R74.01 Elevation of levels of liver transaminase levels; R74.8 Abnormal levels of other serum enzymes; R29.6 Repeated falls; R41.0 Disorientation, unspecified; W19.XXXA Unspecified fall, initial encounter; Y92.009 Unspecified place in unspecified non-institutional (private) residence as the place of occurrence of the external cause; Z93.3 Colostomy status; Z92.3 Personal history of irradiation; Z91.81 History of falling; Z91.19 Patient's noncompliance with other medical treatment and regimen; Z87.820 Personal history of traumatic brain injury; Z85.46 Personal history of malignant neoplasm of prostate; Z82.49 Family history of ischemic heart disease and other diseases of the circulatory system; Z79.899 Other long term (current) drug therapy; Z79.82 Long term (current) use of aspirin; Z79.02 Long term (current) use of antithrombotics/antiplatelets; Z79.01 Long term (current) use of anticoagulants
CPT/HCPCS: 36415; 70450; 71045; 72125; 72131; 80053; 81001; 82550; 82728; 82805; 83605; 83615; 83735; 84100; 84145; 84484; 85025; 85027; 85379; 85610; 85730; 86140; 87086; 87635; 92950; 93005; 93306; 94660; 96361; 96365; 99285